=== PATIENT | female | born 1955 | race Caucasian/White ===

== ENCOUNTER 2017-08-22 18:41 | Emergency (ER) | payer MEDICARE ==
[2017-08-22 19:21] VITALS: BP 157/68
[2017-08-22] MEDS ORDERED: Sodium Chloride 0.9% 10 ML Syringe FLUSH PRN (21:07)
[2017-08-22] MEDS: Sodium Chloride 0.9% 1,000 ML IV ONE ×2 (21:26→21:38)
[2017-08-22] MEDS: HYDROmorphone 1 MG/ML Syringe IVPUSH ONE ×2 (21:28→22:57)
[2017-08-22] MEDS ORDERED: Sodium Chloride 0.9% 500 ML IV ONE (21:31)
--- NOTE | 2017-08-22 21:31 | EDM.PDOC ---
ED HPI GENERAL MEDICAL PROBLEM - General Chief Complaint: Back Pain or Injury Stated Complaint: back and left side pain Time Seen by Provider: 08/22/17 20:55 Source of Information: Reports: Patient History Limitations: Reports: No Limitations - History of Present Illness INITIAL COMMENTS - FREE TEXT/NARRATIVE: 62-year-old female presents for evaluation and treatment of left lower back and left flank pain. Patient reports that the pain started suddenly around 1700 or 1730 tonight. Reports at that time she was just sitting watching TV. She states it came on suddenly has been a constant pain. She did feel hot when the pain started. She denies any associated fevers, chills, nausea, vomiting, dysuria, hematuria, lightheadedness, dizziness or syncope. Patient reports that she had a kidney stone several years ago. Patient's past medical history of COPD and is on oxygen at all times. Onset: Today Onset Date: 08/22/17 Location: Reports: Other (left back and flank) Left Lower Back Pain Score (Numeric/FACES): 10 - Related Data Allergies Allergy/AdvReac Type Severity Reaction Status Date / Time levofloxacin [From Levaquin] Allergy Rash Verified 08/08/17 14:46 Home Meds: Home Meds Budesonide/Formoterol [Symbicort 160-4.5 MCG] 2 puff INH BID 04/18/14 [History] Furosemide [Lasix] 40 mg PO BID 04/18/14 [History] Montelukast [Singulair] 10 mg PO BEDTIME 04/18/14 [History] Potassium Chloride [K-Tab ER] 20 meq PO DAILY 04/18/14 [History] Albuterol [Proventil HFA] 2 puff INH Q3H PRN 05/20/15 [History] Albuterol/Ipratropium [DuoNeb 3.0-0.5 MG/3 ML] 3 ml NEB Q4HR 01/13/16 [History] Aclidinium [place] [Tudorza Pressair] 1 puff IH BID 08/08/17 [History] Roflumilast [Daliresp] 500 mcg PO DAILY 08/08/17 [History] Amoxicillin/Potassium Clav [Augmentin 875-125 Tablet] 1 each PO BID #19 tablet 08/22/17 [Rx] Past Medical History Cardiovascular History: Reports: Hypertension Respiratory History: Reports: Asthma, COPD, SOB Other OB/BYN History: Hematologic History: Reports: Other (See Below) Other Hematologic History: Alpha-1 Deficiency - Infectious Disease History Infectious Disease History: Reports: Chicken Pox - Past Surgical History HEENT Surgical History: Reports: Tonsillectomy GI Surgical History: Reports: Cholecystectomy Female Surgical History: Reports: Section Social & Family History - Family History Family Medical History: Noncontributory - Tobacco Use Smoking Status *Q: Former Smoker Years of Tobacco use: 40 Used Tobacco, but Quit: Yes Month Tobacco Last Used: 100 Second Hand Smoke Exposure: No - Caffeine Use Caffeine Use: Reports: Coffee - Alcohol Use Days Per Week of Alcohol Use: 0 Number of Drinks Per Day: 0 Total Drinks Per Week: 0 - Recreational Drug Use Recreational Drug Use: No Drug Use in Last 12 Months: No ED ROS GENERAL - Review of Systems Review Of Systems: See Below Constitutional: Denies: Fever, Chills Cardiovascular: Denies: Lightheadedness, Syncope GI/Abdominal: Denies: Nausea, Vomiting : Reports: Flank Pain (left). Denies: Dysuria Musculoskeletal: Reports: Back Pain (left low to mid back) Neurological: Denies: Syncope ED EXAM,LOWER BACK PAIN/INJURY - Physical Exam Exam: See Below Exam Limited By: No Limitations General Appearance: Alert, WD/WN, No Apparent Distress Ears: Normal External Exam Throat/Mouth: Normal Inspection, Normal Lips, Normal Voice, No Airway Compromise Respiratory/Chest: No Respiratory Distress, Lungs Clear, Normal Breath Sounds Cardiovascular: Normal Peripheral Pulses, Regular Rate, Rhythm, No Murmur GI/Abdominal: No: Distended Back Exam: Normal Inspection, CVA Tenderness (L). No: CVA Tenderness (R) Course - Vital Signs Last Recorded V/S: Last Vital Signs Temp 37.1 C 08/22/17 19:16 Pulse 116 H 08/22/17 19:16 Resp 24 H 08/22/17 19:16 BP 157/68 H 08/22/17 19:16 Pulse Ox 89 L 08/22/17 19:16 - Orders/Labs/Meds Labs: Laboratory Tests 08/22/17 08/22/17 08/22/17 Range/Units 20:00 22:00 22:00 WBC 19.03 H (3.98-10.04) K/mm3 RBC 4.16 (3.98-5.22) M/mm3 Hgb 12.7 (11.2-15.7) gm/L Hct 40.2 (34.1-44.9) % MCV 96.6 H (79.4-94.8) fl MCH 30.5 (25.6-32.2) pg MCHC 31.6 L (32.2-35.5) g/dl RDW Std Deviation 44.9 (36.4-46.3) fL Plt Count 291 (182-369) K/mm3 MPV 9.7 (9.4-12.3) fl Neutrophils % (Manual) 88 H (40-60) % Band Neutrophils % 0 (0-10) % Lymphocytes % (Manual) 9 L (20-40) % Atypical Lymphs % 0 % Monocytes % (Manual) 3 (2-10) % Eosinophils % (Manual) 0 L (0.7-5.8) % Basophils % (Manual) 0 L (0.1-1.2) Platelet Estimate Adequate Plt Morphology Comment Normal RBC Morph Comment Normal Sodium 140 (136-145) mEq/L Potassium 3.9 (3.5-5.1) mEq/L Chloride 102 (98-107) mEq/L Carbon Dioxide 36 H (21-32) mEq/L Anion Gap 5.9 (5-15) BUN 13 (7-18) mg/dL Creatinine 0.7 (0.55-1.02) mg/dL Est Cr Clr Drug Dosing 69.81 mL/min Estimated GFR (MDRD) > 60 (>60) mL/min BUN/Creatinine Ratio 18.6 H (14-18) Glucose 108 (80-115) mg/dL Calcium 9.7 (8.5-10.1) mg/dL Total Bilirubin 0.4 (0.2-1.0) mg/dL AST 20 (15-37) U/L ALT 24 (14-59) U/L Alkaline Phosphatase 112 (46-116) U/L Total Protein 8.2 (6.4-8.2) g/dl Albumin 3.8 (3.4-5.0) g/dl Globulin 4.4 gm/dL Albumin/Globulin Ratio 0.9 L (1-2) Urine Color Light yellow (Yellow) Urine Appearance Clear (Clear) Urine pH 6.5 (5.0-8.0) Ur Specific [place] 1.010 (1.005-1.030) Urine Protein Negative (Negative) Urine Glucose (UA) Negative (Negative) Urine Ketones Negative (Negative) Urine Occult Blood Negative (Negative) Urine Nitrite Negative (Negative) Urine Bilirubin Negative (Negative) Urine Urobilinogen 0.2 (0.2-1.0) Ur Leukocyte Esterase Negative (Negative) Urine RBC 0-5 (0-5) /hpf Urine WBC 0-5 (0-5) /hpf Ur Epithelial Cells 0-5 (0-5) /hpf Urine Bacteria Rare (FEW) /hpf Urine Mucus Not seen (FEW) /hpf Meds: Medications Discontinued Medications Generic Name Dose Route Start Last Admin Trade Name Freq PRN Reason Stop Dose Admin Amoxicillin/Clavulanate Potassium 1 tab 08/22/17 22:53 08/22/17 23:02 Augmentin 875 Mg/125 Mg PO 08/22/17 22:54 1 tab ONETIME ONE Administration Hydromorphone HCl 1 mg 08/22/17 21:07 08/22/17 22:57 Dilaudid IVPUSH 08/22/17 21:08 Not Given ONETIME ONE Sodium Chloride 1,000 mls @ 999 mls/hr 08/22/17 21:09 08/22/17 21:38 Normal Saline IV 08/22/17 22:09 Not Given ONETIME ONE Sodium Chloride 500 mls @ 500 mls/hr 08/22/17 21:31 08/22/17 21:38 Normal Saline IV 08/22/17 22:08 500 mls/hr ONETIME ONE Administration Ketorolac Tromethamine 30 mg 08/22/17 21:32 08/22/17 21:35 Toradol IVPUSH 08/22/17 21:33 30 mg ONETIME ONE Administration Sodium Chloride 10 ml 08/22/17 21:07 08/22/17 21:29 Saline Flush FLUSH 10 ml ASDIRECTED PRN Administration Keep Vein Open - Radiology Interpretation Free Text/Narrative:: CT of the abdomen and pelvis without contrast impression per [facility]: No acute findings. Kidneys and ureters are unremarkable. No obstructing stone. No hydronephrosis. Normal appendix. Pancreas is unremarkable. Vasculature is unremarkable. No abdominal aortic aneurysm. - Re-Assessments/Exams Free Text/Narrative Re-Assessment/Exam: 08/22/17 22:[address] and lab results with the patient. At this point her pain is gone. She declined the Dilaudid earlier and was okay with Toradol. This is now resolved her pain. Plan to discharge her home at this time. Discharge instructions as documented. Departure - Departure Time of Disposition: 22:55 Disposition: Home, Self-Care 01 Condition: Fair Clinical Impression: Sinusitis - Discharge Information Prescriptions: Amoxicillin/Potassium Clav [Augmentin 875-125 Tablet] 1 each PO BID #19 tablet Instructions: Sinusitis, Adult, [id number] Referrals: Harvey Sainz MD [Primary Care Provider] - Forms: ED Department Discharge Additional Instructions: augmentin 1 tab PO bid x 10 days. First dose given in ED start your Rx tomorrow. Take this medication with food. Recommend starting yogurt or a probiotic to help reduce side effects of upset stomach and diarrhea. OTC tylenol or motrin as needed for pain. Recommend using heat to the sore area. Follow- up with PCP this week for a recheck of your symptoms. Please return to the ER should your symptoms change or worsen.
[2017-08-22] MEDS ORDERED: Ketorolac 30 MG/ML SDV IVPUSH ONE (21:32)
[2017-08-22] MEDS ORDERED: Amoxicillin/Clavulanate K 875-125 MG Tab PO ONE (22:53)
--- NOTE | 2017-08-23 10:28 | CT ---
CT abdomen and pelvis Technique: Multiple axial sections were obtained from above the dome of the diaphragm inferiorly through the pubic symphysis. Intravenous and oral contrast was not utilized. Study has been performed as a ureteral stone protocol. Comparison: No prior abdominal or pelvic CT exam, previous abdominal x-ray of 01/01/15. Findings: No abnormal calcifications are seen within the kidneys. Small low density area is noted within the left kidney which is felt compatible with a small cyst measuring 1.4 cm. No hydronephrosis is seen. No ureteral calculi are seen. No bladder calculi are seen. Visualized lung bases show parenchymal density within the left base most likely due to atelectasis or scarring. Noncontrast appearance of the liver and spleen appears within normal limits. Surgical clips are seen from prior cholecystectomy. Pancreas is within normal limits. Adrenal glands show no nodule. Aorta shows minimal aneurysmal dilatation distally of 2.6 cm. Atherosclerotic calcification is noted within the aorta and iliac vessels. No retroperitoneal adenopathy is seen. No mesenteric abnormalities are seen. Appendix is seen which appears normal. No pelvic mass or adenopathy is seen. No free fluid or inflammatory change is identified. Bone window settings were reviewed which show severe disc space narrowing at L5-S1 with vacuum phenomena. Other less prominent degenerative change is seen. Impression: 1. No renal calculi, ureteral dilatation or ureteral stone is seen. 2. Minimal aneurysmal dilatation of the distal aorta 2.6 cm. 3. Other incidental findings as noted above. Diagnostic code #2 I agree with preliminary report issued by [employer] ([facility] report finalized on 08/22/17, 10:59 PM Central Time)
== END 2017-08-22 23:05 | disposition home or self-care (01) ==
LOC: JD.ED 18:41
DX: J32.9 Chronic sinusitis, unspecified (principal); I10 Essential (primary) hypertension; J45.909 Unspecified asthma, uncomplicated; Z88.1 Allergy status to other antibiotic agents
CPT/HCPCS: 36415; 74176; 80053; 81001; 85025; 96361; 96374; 99284; A9270; J1885; J7040; J7050; J1170

== ENCOUNTER 2019-07-14 12:26 | Inpatient (IN) | payer MEDICARE ==
[2019-07-14] MEDS ORDERED: Albuterol/Ipratropium 3.0-0.5 MG/3 ML Neb Soln NEB ONE (13:06)
[2019-07-14] MEDS ORDERED: methylPREDNISolone Sodium Succinate 125 MG/2 ML SDV IVPUSH ONE (13:13)
--- NOTE | 2019-07-14 13:24 | EDM.PDOC ---
ED HPI GENERAL MEDICAL PROBLEM - General Chief Complaint: Respiratory Problem Stated Complaint: SOB Time Seen by Provider: 07/14/19 13:04 Source of Information: Reports: Patient, RN Notes Reviewed History Limitations: Reports: No Limitations - History of Present Illness INITIAL COMMENTS - FREE TEXT/NARRATIVE: Patient is a 64-year-old female presents to the ED for evaluation of shortness of breath or cough. Patient notes that she does have a history of COPD, and is oxygen dependent, she states she uses 4-1/2 L at rest and 5 L with activity and sleep. She states she developed a cough last night, and is now coughing up sticky phlegm is yellow in color. She states she does live with her granddaughter grandchildren, all of which have been ill for the past few weeks. Patient states she just feels as if she cannot catch her breath, and complaints of her chest "burning". 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 She denies any fevers or chills, nausea/vomiting/diarrhea, but states she has increased shortness of breath with the chest burning. - Related Data Allergies Allergy/AdvReac Type Severity Reaction Status Date / Time levofloxacin [From Levaquin] Allergy Rash Verified 07/14/19 12:47 Home Meds: Home Meds Furosemide [Lasix] 40 mg PO BID 04/18/14 [History] Montelukast [Singulair] 10 mg PO BEDTIME 04/18/14 [History] Potassium Chloride [K-Tab ER] 20 meq PO DAILY 04/18/14 [History] Albuterol [Proventil HFA] 2 puff INH Q3H PRN 05/20/15 [History] Albuterol/Ipratropium [DuoNeb 3.0-0.5 MG/3 ML] 3 ml NEB Q4HR 01/13/16 [History] Roflumilast [Daliresp] 500 mcg PO DAILY 08/08/17 [History] Aclidinium [place] [Tudorza Pressair] 1 puff INH BID 07/14/19 [History] Fluticasone/Vilanterol [Breo Ellipta 200-25 MCG Inhalation Kit] 1 puff INH DAILY 07/14/19 [History] Past Medical History HEENT History: Reports: Impaired Vision Other HEENT History: reading eyeglasses. 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 - Infectious Disease History Infectious Disease History: Reports: Chicken Pox - Past Surgical History HEENT Surgical History: Reports: Oral Surgery, Tonsillectomy Other HEENT Surgeries/Procedures: teeth taken out. GI Surgical History: Reports: Cholecystectomy Female Surgical History: Reports: Section Social & Family History - Family History Family Medical History: Noncontributory - Tobacco Use Smoking Status *Q: Former Smoker Years of Tobacco use: 40 Packs/Tins Daily: 1 Used Tobacco, but Quit: Yes Month/Year Tobacco Last Used: Aug 2012 - Caffeine Use Caffeine Use: Reports: Coffee - Recreational Drug Use Recreational Drug Use: No - Living Situation & Occupation Living situation: Reports: , with Family (Daughter, son-in-law, 2 grandchildren) Occupation: Disabled ED ROS GENERAL - Review of Systems Review Of Systems: See Below Constitutional: Denies: Fever, Chills, Malaise HEENT: Reports: No Symptoms Respiratory: Reports: Shortness of Breath, Cough, Sputum. Denies: Wheezing Cardiovascular: Reports: Chest Pain Endocrine: Reports: No Symptoms GI/Abdominal: Denies: Abdominal Pain, Constipation, Diarrhea, Nausea, Vomiting : Reports: No Symptoms Musculoskeletal: Reports: No Symptoms Skin: Reports: No Symptoms Neurological: Reports: No Symptoms Psychiatric: Reports: No Symptoms Hematologic/Lymphatic: Reports: No Symptoms Immunologic: Reports: No Symptoms ED EXAM, GENERAL - Physical Exam Exam: See Below Exam Limited By: No Limitations General Appearance: Alert, WD/WN, No Apparent Distress Eye Exam: Bilateral Eye: Normal Inspection Nose: Normal Inspection, Normal Mucosa, No Blood Throat/Mouth: Normal Inspection, Normal Lips, Normal Teeth, Normal Gums, Normal Oropharynx, Normal Voice, No Airway Compromise Head: Atraumatic, Normocephalic Neck: Normal Inspection Respiratory/Chest: No Respiratory Distress, Lungs Clear, No Accessory Muscle Use , Chest Non-Tender, Decreased Breath Sounds (diffuse bilaterally) Cardiovascular: Normal Peripheral Pulses, Regular Rate, Rhythm, No Edema, No Murmur Peripheral Pulses: 3+: Radial (L), Radial (R) GI/Abdominal: Normal Bowel Sounds, Soft, Non-Tender, No Distention, No Mass Extremities: Normal Inspection, Normal Capillary Refill Neurological: Alert, Oriented, Normal Cognition, No Motor/Sensory Deficits Psychiatric: Normal Affect, Normal Mood Skin Exam: Warm, Dry, Intact, Normal Color, No Rash EKG INTERPRETATION EKG Date: 07/14/19 Time: 13:12 Rhythm: NSR (sinus tach) Rate (Beats/Min): 104 [place]: Normal P-Wave: Present QRS: Normal ST-T: Normal QT: Normal EKG Interpretation Comments: EKG is done, demonstrates sinus tach, but no other acute ischemic changes, she did have multiple PVCs noted. That appeared to be unifocal. This was reviewed by myself and Dr. Eugene. Course - Vital Signs Last Recorded V/S: Last Vital Signs Temp 98.2 F 07/14/19 16:46 Pulse 101 H 07/14/19 16:46 Resp 24 H 07/14/19 16:46 BP 157/55 H 07/14/19 16:46 Pulse Ox 95 07/14/19 16:46 - Orders/Labs/Meds Orders: Active Orders 24 hr Category Date Time Status RT Aerosol Therapy [RC] ASDIRECTED Care 07/14/19 13:06 Active Chest 2V [CR] Stat Exams 07/14/19 13:05 Taken Sodium Chloride 0.9% [Saline Flush] Med 07/14/19 13:13 Active 10 ml FLUSH ASDIRECTED PRN Peripheral IV Insertion Adult [OM.PC] Stat Oth 07/14/19 13:13 Ordered Medication Orders Acetaminophen (Tylenol) 650 mg PO Q4H PRN PRN Reason: Pain (Mild 1-3)/fever Albuterol (Proventil Hfa) 0 gm INH Q2H PRN PRN Reason: Shortness of Breath Albuterol/Ipratropium (Duoneb 3.0-0.5 Mg/3 Ml) 3 ml NEB Q4HR ROD Last Admin: 07/14/19 22:15 Dose: 3 ml Azithromycin (Zithromax) 250 mg PO Q24H ROD Enoxaparin Sodium (Lovenox) 40 mg SUBCUT DAILY [facility] Furosemide (Lasix) 40 mg PO BID [facility] Ceftriaxone Sodium 1 gm/ (Sodium Chloride) 100 mls @ 200 mls/hr IV Q24H [facility] Methylprednisolone Sodium Succinate (Solu-Medrol) 40 mg IVPUSH Q6H ROD Last Admin: 07/14/19 20:15 Dose: 40 mg Montelukast Sodium (Singulair) 10 mg PO BEDTIME ROD Last Admin: 07/14/19 20:15 Dose: 10 mg Ondansetron HCl (Zofran) 4 mg IV Q4H PRN PRN Reason: Nausea/Vomiting Potassium Chloride (Klor-Con M20) 20 meq PO DAILY [facility] Sodium Chloride (Saline Flush) 10 ml FLUSH ASDIRECTED PRN PRN Reason: Keep Vein Open Last Admin: 07/14/19 14:32 Dose: 10 ml Labs: Laboratory Tests 07/14/19 07/14/19 07/14/19 Range/Units 12:45 12:45 12:45 WBC 8.30 (3.98-10.04) K/mm3 RBC 4.12 (3.98-5.22) M/mm3 Hgb 12.2 (11.2-15.7) gm/dl Hct 40.7 (34.1-44.9) % MCV 98.8 H D (79.4-94.8) fl MCH 29.6 (25.6-32.2) pg MCHC 30.0 L (32.2-35.5) g/dl RDW Std Deviation 48.1 H (36.4-46.3) fL Plt Count 293 (182-369) K/mm3 MPV 10.4 (9.4-12.3) fl Neutrophils % (Manual) 71 H (40-60) % Band Neutrophils % 0 (0-10) % Lymphocytes % (Manual) 11 L (20-40) % Atypical Lymphs % 0 % Monocytes % (Manual) 14 H (2-10) % Eosinophils % (Manual) 3 (0.7-5.8) % Basophils % (Manual) 1 (0.1-1.2) Platelet Estimate Adequate Plt Morphology Comment See note Anisocytosis 1+ slight Microcytosis 1+ slight RBC Morph Comment Abnormal PT 10.3 (9.7-12.0) SECONDS INR 0.94 APTT 27 (22-31) SECONDS Puncture Site ABG pH (7.35-7.45) ABG pCO2 (35.0-45.0) mmHg ABG pO2 (80.0-100.0) mmHg ABG HCO3 (22.0-26.0) meq/L ABG O2 Saturation (96.0-97.0) % ABG Base Excess (-2-2.0) Perez Test A-a Gradient mmHg O2 Delivery Device Oxygen Flow Rate FiO2 (21.00-100.00) % Sodium 142 (136-145) mEq/L Potassium 4.3 (3.5-5.1) mEq/L Chloride 101 (98-107) mEq/L Carbon Dioxide 42 H* (21-32) mEq/L Anion Gap 3.3 L (5-15) BUN 17 (7-18) mg/dL Creatinine 0.8 (0.55-1.02) mg/dL Est Cr Clr Drug Dosing 59.54 mL/min Estimated GFR (MDRD) > 60 (>60) mL/min BUN/Creatinine Ratio 21.3 H (14-18) Glucose 115 (80-115) mg/dL Calcium 9.3 (8.5-10.1) mg/dL Total Bilirubin 0.6 (0.2-1.0) mg/dL AST 22 (15-37) U/L ALT 33 (14-59) U/L Alkaline Phosphatase 121 H (46-116) U/L Troponin I < 0.017 (0.00-0.056) ng/mL NT-Pro-B Natriuret Pep (0-125) pg/mL Total Protein 8.0 (6.4-8.2) g/dl Albumin 3.7 (3.4-5.0) g/dl Globulin 4.3 gm/dL Albumin/Globulin Ratio 0.9 L (1-2) Mycoplasma pneumon IgM (NEGATIVE) 07/14/19 07/14/19 07/14/19 Range/Units 12:45 12:45 15:45 WBC (3.98-10.04) K/mm3 RBC (3.98-5.22) M/mm3 Hgb (11.2-15.7) gm/dl Hct (34.1-44.9) % MCV (79.4-94.8) fl MCH (25.6-32.2) pg MCHC (32.2-35.5) g/dl RDW Std Deviation (36.4-46.3) fL Plt Count (182-369) K/mm3 MPV (9.4-12.3) fl Neutrophils % (Manual) (40-60) % Band Neutrophils % (0-10) % Lymphocytes % (Manual) (20-40) % Atypical Lymphs % % Monocytes % (Manual) (2-10) % Eosinophils % (Manual) (0.7-5.8) % Basophils % (Manual) (0.1-1.2) Platelet Estimate Plt Morphology Comment Anisocytosis Microcytosis RBC Morph Comment PT (9.7-12.0) SECONDS INR APTT (22-31) SECONDS Puncture Site Lt radial ABG pH 7.34 L (7.35-7.45) ABG pCO2 80.4 H* (35.0-45.0) mmHg ABG pO2 79.0 L (80.0-100.0) mmHg ABG HCO3 41.7 H (22.0-26.0) meq/L ABG O2 Saturation 94.1 L (96.0-97.0) % ABG Base Excess 13.2 H (-2-2.0) Perez Test Positive A-a Gradient 64 mmHg O2 Delivery Device Nasal cannula Oxygen Flow Rate 4.5 FiO2 34.00 (21.00-100.00) % Sodium (136-145) mEq/L Potassium (3.5-5.1) mEq/L Chloride (98-107) mEq/L Carbon Dioxide (21-32) mEq/L Anion Gap (5-15) BUN (7-18) mg/dL Creatinine (0.55-1.02) mg/dL Est Cr Clr Drug Dosing mL/min Estimated GFR (MDRD) (>60) mL/min BUN/Creatinine Ratio (14-18) Glucose (80-115) mg/dL Calcium (8.5-10.1) mg/dL Total Bilirubin (0.2-1.0) mg/dL AST (15-37) U/L ALT (14-59) U/L Alkaline Phosphatase (46-116) U/L Troponin I (0.00-0.056) ng/mL NT-Pro-B Natriuret Pep 170 H (0-125) pg/mL Total Protein (6.4-8.2) g/dl Albumin (3.4-5.0) g/dl Globulin gm/dL Albumin/Globulin Ratio (1-2) Mycoplasma pneumon IgM Positive H (NEGATIVE) Meds: Medications Generic Name Dose Route Start Last Admin Trade Name Freq PRN Reason Stop Dose Admin Acetaminophen 650 mg 07/14/19 17:17 Tylenol PO Q4H PRN Pain (Mild 1-3)/fever Albuterol 0 gm 07/14/19 17:27 Proventil Hfa INH Q2H PRN Shortness of Breath Albuterol/Ipratropium 3 ml 07/14/19 21:00 07/14/19 22:15 Duoneb 3.0-0.5 Mg/3 Ml NEB 3 ml Q4HR ROD Administration Azithromycin 250 mg 07/15/19 16:00 Zithromax PO Q24H ROD Enoxaparin Sodium 40 mg 07/15/19 09:00 Lovenox SUBCUT DAILY ROD Furosemide 40 mg 07/15/19 09:00 Lasix PO BID ROD Ceftriaxone Sodium 1 gm/ 100 mls @ 200 mls/hr 07/15/19 15:00 Sodium Chloride IV Q24H ROD Methylprednisolone Sodium Succinate 40 mg 07/14/19 20:00 07/14/19 20:15 Solu-Medrol IVPUSH 40 mg Q6H ROD Administration Montelukast Sodium 10 mg 07/14/19 21:00 07/14/19 20:15 Singulair PO 10 mg BEDTIME ROD Administration Ondansetron HCl 4 mg 07/14/19 17:17 Zofran IV Q4H PRN Nausea/Vomiting Potassium Chloride 20 meq 07/15/19 09:00 Klor-Con M20 PO DAILY ROD Sodium Chloride 10 ml 07/14/19 13:13 07/14/19 14:32 Saline Flush FLUSH 10 ml ASDIRECTED PRN Administration Keep Vein Open Discontinued Medications Generic Name Dose Route Start Last Admin Trade Name Sarkisq PRN Reason Stop Dose Admin Albuterol/Ipratropium 3 ml 07/14/19 13:06 07/14/19 13:21 Duoneb 3.0-0.5 Mg/3 Ml NEB 07/14/19 13:07 3 ml ONETIME ONE Administration Azithromycin 500 mg/ Sodium 250 mls @ 250 mls/hr 07/14/19 15:14 07/14/19 17: 41 Chloride IV 07/14/19 16:13 250 mls/hr ONETIME ONE Administration Ceftriaxone Sodium 1 gm/ 100 mls @ 200 mls/hr 07/14/19 15:13 07/14/19 16:02 Sodium Chloride IV 07/14/19 15:42 200 mls/hr ONETIME ONE Administration Lorazepam 0.5 mg 07/14/19 18:48 07/14/19 19:08 Ativan IVPUSH 07/14/19 18:49 0.5 mg ONETIME ONE Administration Methylprednisolone Sodium Succinate 125 mg 07/14/19 13:13 07/14/19 14:30 Solu-Medrol IVPUSH 07/14/19 13:14 125 mg ONETIME ONE Administration - Re-Assessments/Exams Free Text/Narrative Re-Assessment/Exam: 07/14/19 13:25 Patient presents to the ED for evaluation of increasing shortness of breath or cough. Lung sounds are decreased bilaterally, which is suggestive of some exacerbation of her COPD. Did order a DuoNeb, EKG, chest x-ray, 125 mg of Solu- Medrol IV, with CBC, CMP, troponin, PT/INR, PTT, mycoplasma, and BNP for initial evaluation. 07/14/19 13:55 CBC and CMP are back, white blood cell count is within normal limits, neutrophil percentage is 71% with no bands, metabolic panel is essentially normal except for an elevated CO2 level, but she is a CO2 retainer, so this is not worrisome at this time. Trop is negative, and BNP is only mildly elevated at 170. 07/14/19 14:58 Chest x-ray demonstrates possible vascular congestion vs. early pneumonia on the R lung. Mycoplasma is still pending at this time. I do believe the patient would benefit from hospital admission for COPD exacerbation at this time. I will try to call Dr. Lara for possible admission at this time. 07/14/19 15:10 Dr. Lara was consulted on the patient, and he accepts patient for admission however does want ABG to be drawn to check ventilatory status, guarding possible BiPAP use. He recommended start of 1 g Rocephin and 500 mg azithromycin for antibiotic regimen. Mycoplasma was positive. Departure - Departure Time of Disposition: 15:15 Disposition: Admitted As Inpatient 67 Condition: Fair Clinical Impression: COPD exacerbation Community acquired pneumonia Qualifiers: Laterality: right Lung location: unspecified part of lung Qualified Code(s): J18.9 - Pneumonia, unspecified organism - Discharge Information *PRESCRIPTION DRUG MONITORING PROGRAM REVIEWED*: No *COPY OF PRESCRIPTION DRUG MONITORING REPORT IN PATIENT LANI: No - My Orders Last 24 Hours: My Active Orders 07/14/19 13:05 Chest 2V [CR] Stat 07/14/19 13:06 RT Aerosol Therapy [RC] ASDIRECTED 07/14/19 13:13 Sodium Chloride 0.9% [Saline Flush] 10 ml FLUSH ASDIRECTED PRN Peripheral IV Insertion Adult [OM.PC] Stat - Assessment/Plan Last 24 Hours: My Active Orders 07/14/19 13:05 Chest 2V [CR] Stat 07/14/19 13:06 RT Aerosol Therapy [RC] ASDIRECTED 07/14/19 13:13 Sodium Chloride 0.9% [Saline Flush] 10 ml FLUSH ASDIRECTED PRN Peripheral IV Insertion Adult [OM.PC] Stat
[2019-07-14] MEDS: Sodium Chloride 0.9% 10 ML Syringe FLUSH PRN (14:32)
[2019-07-14] MEDS ORDERED: cefTRIAXone 1 GM in Sodium Chloride 0.9% 100 ML IV ONE (15:13)
[2019-07-14] MEDS ORDERED: Azithromycin 500 MG in Sodium Chloride 0.9% 250 ML IV ONE (15:14)
[2019-07-14] MEDS ORDERED: Acetaminophen 325 MG Tab PO PRN (17:17)
[2019-07-14] MEDS ORDERED: Ondansetron 4 MG/2 ML SDV IV PRN (17:17)
[2019-07-14] MEDS ORDERED: Albuterol 6.7 GM Inhaler INH PRN (17:27)
--- NOTE | 2019-07-14 17:34 | PCM.HP.2 ---
H&P History of Present Illness - General Date of Service: 07/14/19 Admit Problem/Dx: Admission Diagnosis/Problem Admission Diagnosis/Problem COPD not affecting current episode of care - History of Present Illness Initial Comments - Free Text/Narative: 64-year-old female with severe COPD presented to the emergency room with shortness of breath that started this morning. Patient states that she has been on oxygen since 2012, the same time she stops smoking, and is now on 4.5 L daily and 5.0 L with activity. She states that she has been prescribed 5.0 L with sleep but does not use it because it's too much. She does use a 4.5 L at sleep though. Patient states that she today she had some worsening shortness of breath with dyspnea on exertion from her bed to her bathroom. She states that everyone in her house has been sick. She did cough yellowish sputum up-to-date. She denies any fever or chills. She has a history of hypertension but no history of heart disease although she is on Lasix twice a day. In the emergency room patient was given DuoNeb, EKG, chest x-ray, Solu-Medrol 125 mg IV, and lab work. Laboratory pertinent positives: Bicarbonate 42, proBNP 170, mycoplasma pneumonia IgM positive. Pertinent negatives: CBC 8.3, 71% neutrophils with 0% bands, normal electrolytes, BUN 17, creatinine 0.8 with an estimated GFR greater than 60, troponin I less than 0.017. Chest x-ray shows some increased basilar congestion but otherwise negative. ABG was performed: PH 7.34, PCO2 of 80.4, PO2 of 79, HCO3 41.7. Acute on chronic history acidosis with metabolic alkalosis - Related Data Allergies/Adverse Reactions: Allergies Allergy/AdvReac Type Severity Reaction Status Date / Time levofloxacin [From Levaquin] Allergy Rash Verified 07/14/19 12:47 Home Medications: Home Meds Furosemide [Lasix] 40 mg PO BID 04/18/14 [History] Montelukast [Singulair] 10 mg PO BEDTIME 04/18/14 [History] Potassium Chloride [K-Tab ER] 20 meq PO DAILY 04/18/14 [History] Albuterol [Proventil HFA] 2 puff INH Q3H PRN 05/20/15 [History] Albuterol/Ipratropium [DuoNeb 3.0-0.5 MG/3 ML] 3 ml NEB Q4HR 01/13/16 [History] Roflumilast [Daliresp] 500 mcg PO DAILY 08/08/17 [History] Aclidinium [address] [Tudorza Pressair] 1 puff INH BID 07/14/19 [History] Fluticasone/Vilanterol [Breo Ellipta 200-25 MCG Inhalation Kit] 1 puff INH DAILY 07/14/19 [History] Past Medical History HEENT History: Reports: Impaired Vision Other HEENT History: reading eyeglasses. 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 - Infectious Disease History Infectious Disease History: Reports: Chicken Pox - Past Surgical History HEENT Surgical History: Reports: Oral Surgery, Tonsillectomy Other HEENT Surgeries/Procedures: teeth taken out. GI Surgical History: Reports: Cholecystectomy Female Surgical History: Reports: Section Social & Family History - Family History Family Medical History: Noncontributory - Tobacco Use Smoking Status *Q: Former Smoker Years of Tobacco use: 40 Packs/Tins Daily: 1 Used Tobacco, but Quit: Yes Month/Year Tobacco Last Used: Aug 2012 - Caffeine Use Caffeine Use: Reports: Coffee - Recreational Drug Use Recreational Drug Use: No - Living Situation & Occupation Living situation: Reports: , with Family (Daughter, son-in-law, 2 grandchildren) Occupation: Disabled H&P Review of Systems - Review of Systems: Review Of Systems: Comprehensive ROS is negative, except as noted in HPI. Exam - Exam Exam: See Below - Vital Signs Vital Signs: Last Vital Signs Temp 98.3 F 07/14/19 16:25 Pulse 96 07/14/19 16:25 Resp 22 H 07/14/19 16:25 BP 127/106 H 07/14/19 16:25 Pulse Ox 94 L 07/14/19 16:25 Weight: 202 lb 14.4 oz - Exam Quality Assessment: Supplemental Oxygen General: Alert, Oriented, 4 HEENT: Conjunctiva Clear, EACs Clear, Mucosa Moist & [place] Neck: Supple, Trachea Midline, 2 Lungs: Decreased Breath Sounds. No: Normal Respiratory Effort (increased respiratory rate with increasedaccessory muscles and work of breathing) Cardiovascular: Regular Rate, Regular Rhythm GI/Abdominal Exam: Normal Bowel Sounds, Soft, Non-Tender, No Distention Extremities: Normal Inspection, No Pedal Edema Skin: Warm, Dry, Intact Neuro Extensive - Mental Status: Alert, Oriented x3 Neuro Extensive - Motor, Sensory, Reflexes: CN II-XII Intact Psychiatric: Alert, Normal Affect, Normal Mood - Patient Data Lab Results Last 24 hrs: Laboratory Results - last 24 hr 07/14/19 07/14/19 07/14/19 Range/Units 12:45 12:45 12:45 WBC 8.30 (3.98-10.04) K/mm3 RBC 4.12 (3.98-5.22) M/mm3 Hgb 12.2 (11.2-15.7) gm/dl Hct 40.7 (34.1-44.9) % MCV 98.8 H D (79.4-94.8) fl MCH 29.6 (25.6-32.2) pg MCHC 30.0 L (32.2-35.5) g/dl RDW Std Deviation 48.1 H (36.4-46.3) fL Plt Count 293 (182-369) K/mm3 MPV 10.4 (9.4-12.3) fl Neutrophils % (Manual) 71 H (40-60) % Band Neutrophils % 0 (0-10) % Lymphocytes % (Manual) 11 L (20-40) % Atypical Lymphs % 0 % Monocytes % (Manual) 14 H (2-10) % Eosinophils % (Manual) 3 (0.7-5.8) % Basophils % (Manual) 1 (0.1-1.2) Platelet Estimate Adequate Plt Morphology Comment See note Anisocytosis 1+ slight Microcytosis 1+ slight RBC Morph Comment Abnormal PT 10.3 (9.7-12.0) SECONDS INR 0.94 APTT 27 (22-31) SECONDS Puncture Site ABG pH (7.35-7.45) ABG pCO2 (35.0-45.0) mmHg ABG pO2 (80.0-100.0) mmHg ABG HCO3 (22.0-26.0) meq/L ABG O2 Saturation (96.0-97.0) % ABG Base Excess (-2-2.0) Perez Test A-a Gradient mmHg O2 Delivery Device Oxygen Flow Rate FiO2 (21.00-100.00) % Sodium 142 (136-145) mEq/L Potassium 4.3 (3.5-5.1) mEq/L Chloride 101 (98-107) mEq/L Carbon Dioxide 42 H* (21-32) mEq/L Anion Gap 3.3 L (5-15) BUN 17 (7-18) mg/dL Creatinine 0.8 (0.55-1.02) mg/dL Est Cr Clr Drug Dosing 59.54 mL/min Estimated GFR (MDRD) > 60 (>60) mL/min BUN/Creatinine Ratio 21.3 H (14-18) Glucose 115 (80-115) mg/dL Calcium 9.3 (8.5-10.1) mg/dL Total Bilirubin 0.6 (0.2-1.0) mg/dL AST 22 (15-37) U/L ALT 33 (14-59) U/L Alkaline Phosphatase 121 H (46-116) U/L Troponin I < 0.017 (0.00-0.056) ng/mL NT-Pro-B Natriuret Pep (0-125) pg/mL Total Protein 8.0 (6.4-8.2) g/dl Albumin 3.7 (3.4-5.0) g/dl Globulin 4.3 gm/dL Albumin/Globulin Ratio 0.9 L (1-2) Mycoplasma pneumon IgM (NEGATIVE) 07/14/19 07/14/19 07/14/19 Range/Units 12:45 12:45 15:45 WBC (3.98-10.04) K/mm3 RBC (3.98-5.22) M/mm3 Hgb (11.2-15.7) gm/dl Hct (34.1-44.9) % MCV (79.4-94.8) fl MCH (25.6-32.2) pg MCHC (32.2-35.5) g/dl RDW Std Deviation (36.4-46.3) fL Plt Count (182-369) K/mm3 MPV (9.4-12.3) fl Neutrophils % (Manual) (40-60) % Band Neutrophils % (0-10) % Lymphocytes % (Manual) (20-40) % Atypical Lymphs % % Monocytes % (Manual) (2-10) % Eosinophils % (Manual) (0.7-5.8) % Basophils % (Manual) (0.1-1.2) Platelet Estimate Plt Morphology Comment Anisocytosis Microcytosis RBC Morph Comment PT (9.7-12.0) SECONDS INR APTT (22-31) SECONDS Puncture Site Lt radial ABG pH 7.34 L (7.35-7.45) ABG pCO2 80.4 H* (35.0-45.0) mmHg ABG pO2 79.0 L (80.0-100.0) mmHg ABG HCO3 41.7 H (22.0-26.0) meq/L ABG O2 Saturation 94.1 L (96.0-97.0) % ABG Base Excess 13.2 H (-2-2.0) Perez Test Positive A-a Gradient 64 mmHg O2 Delivery Device Nasal cannula Oxygen Flow Rate 4.5 FiO2 34.00 (21.00-100.00) % Sodium (136-145) mEq/L Potassium (3.5-5.1) mEq/L Chloride (98-107) mEq/L Carbon Dioxide (21-32) mEq/L Anion Gap (5-15) BUN (7-18) mg/dL Creatinine (0.55-1.02) mg/dL Est Cr Clr Drug Dosing mL/min Estimated GFR (MDRD) (>60) mL/min BUN/Creatinine Ratio (14-18) Glucose (80-115) mg/dL Calcium (8.5-10.1) mg/dL Total Bilirubin (0.2-1.0) mg/dL AST (15-37) U/L ALT (14-59) U/L Alkaline Phosphatase (46-116) U/L Troponin I (0.00-0.056) ng/mL NT-Pro-B Natriuret Pep 170 H (0-125) pg/mL Total Protein (6.4-8.2) g/dl Albumin (3.4-5.0) g/dl Globulin gm/dL Albumin/Globulin Ratio (1-2) Mycoplasma pneumon IgM Positive H (NEGATIVE) Result Diagrams: 07/14/19 12:45 07/14/19 12:45 Problem List Initiated/Reviewed/Updated: Yes Orders Last 24hrs: Active Orders 24 hr Category Date Time Status Admission Status [Patient Status] [ADT] Routine ADT 07/14/19 16:01 Active BIPAP [RT BiPAP/CPAP] [RC] ASDIRECTED Care 07/14/19 16:05 Active EKG Documentation Completion [RC] STAT Care 07/14/19 13:05 Active Oxygen Therapy [RC] PRN Care 07/14/19 17:17 Active Oxygen Therapy, ED [RC] ASDIRECTED Care 07/14/19 16:39 Active Peripheral IV Care [RC] . DIRECTED Care 07/14/19 13:13 Active RT Aerosol Therapy [RC] ASDIRECTED Care 07/14/19 13:06 Active RT Post Treatment Assessment [RC] Click to Edit Care 07/14/19 17:28 Active RT Pre-Treatment Assessment [RC] Click to Edit Care 07/14/19 17:28 Active Up With Assistance [RC] ASDIRECTED Care 07/14/19 17:17 Active VTE/DVT Education [RC] PER UNIT ROUTINE Care 07/14/19 17:17 Active Vital Signs [RC] Q4H Care 07/14/19 17:17 Active Respiratory Care Assess and Treatment [CONS] Routine Cons 07/14/19 17:21 Active Regular Diet [DIET] Diet 07/14/19 Dinner Active Chest 2V [CR] Stat Exams 07/14/19 13:05 Taken BLOOD GAS ARTERIAL [BG] Timed Lab 07/14/19 18:30 Ordered C-REACTIVE PROTEIN [CHEM] AM Lab 07/15/19 05:11 Ordered C-REACTIVE PROTEIN [CHEM] AM Lab 07/16/19 05:11 Ordered C-REACTIVE PROTEIN [CHEM] AM Lab 07/17/19 05:11 Ordered CBC WITH AUTO DIFF [HEME] AM Lab 07/15/19 05:11 Ordered CBC WITH AUTO DIFF [HEME] AM Lab 07/16/19 05:11 Ordered CBC WITH AUTO DIFF [HEME] AM Lab 07/17/19 05:11 Ordered COMPREHENSIVE METABOLIC PN,CMP [CHEM] AM Lab 07/15/19 05:11 Ordered COMPREHENSIVE METABOLIC PN,CMP [CHEM] AM Lab 07/16/19 05:11 Ordered COMPREHENSIVE METABOLIC PN,CMP [CHEM] AM Lab 07/17/19 05:11 Ordered MAGNESIUM [CHEM] AM Lab 07/15/19 05:11 Ordered MAGNESIUM [CHEM] AM Lab 07/16/19 05:11 Ordered MAGNESIUM [CHEM] AM Lab 07/17/19 05:11 Ordered Acetaminophen [Tylenol] Med 07/14/19 17:17 Active 650 mg PO Q4H PRN Albuterol [Proventil HFA] Med 07/14/19 17:27 Ordered See Dose Instructions INH Q2H PRN Albuterol/Ipratropium [DuoNeb 3.0-0.5 MG/3 ML] Med 07/14/19 21:00 Active 3 ml NEB Q4HR Azithromycin [Zithromax] Med 07/15/19 16:00 Active 250 mg PO Q24H Enoxaparin [Lovenox] Med 07/15/19 09:00 Ordered 40 mg SUBCUT DAILY Furosemide [Lasix] Med 07/15/19 09:00 Ordered 40 mg PO BID Montelukast [Singulair] Med 07/14/19 21:00 Ordered 10 mg PO BEDTIME Ondansetron [Zofran] Med 07/14/19 17:17 Ordered 4 mg IV Q4H PRN Potassium Chloride [K-Tab ER] Med 07/15/19 09:00 Ordered 20 meq PO DAILY Sodium Chloride 0.9% [Saline Flush] Med 07/14/19 13:13 Active 10 ml FLUSH ASDIRECTED PRN cefTRIAXone [Rocephin] 1 gm Med 07/15/19 15:00 Active Sodium Chloride 0.9% [Normal Saline] 100 ml IV Q24H methylPREDNISolone Sod Succ [Solu-MEDROL] Med 07/14/19 20:00 Ordered 40 mg IVPUSH Q6H Peripheral IV Insertion Adult [OM.PC] Stat Oth 07/14/19 13:13 Ordered Resuscitation Status Routine Resus Stat 07/14/19 17:17 Ordered Medication Orders Acetaminophen (Tylenol) 650 mg PO Q4H PRN PRN Reason: Pain (Mild 1-3)/fever Albuterol (Proventil Hfa) 0 gm INH Q2H PRN PRN Reason: Shortness of Breath Albuterol/Ipratropium (Duoneb 3.0-0.5 Mg/3 Ml) 3 ml NEB Q4HR ROD Azithromycin (Zithromax) 250 mg PO Q24H ROD Enoxaparin Sodium (Lovenox) 40 mg SUBCUT DAILY ROD Furosemide (Lasix) 40 mg PO BID ROD Ceftriaxone Sodium 1 gm/ (Sodium Chloride) 100 mls @ 200 mls/hr IV Q24H ROD Methylprednisolone Sodium Succinate (Solu-Medrol) 40 mg IVPUSH Q6H ROD Montelukast Sodium (Singulair) 10 mg PO BEDTIME ROD Non-Formulary Medication (Potassium Chloride [K-Tab Er]) 20 meq PO DAILY ROD Ondansetron HCl (Zofran) 4 mg IV Q4H PRN PRN Reason: Nausea/Vomiting Sodium Chloride (Saline Flush) 10 ml FLUSH ASDIRECTED PRN PRN Reason: Keep Vein Open Last Admin: 07/14/19 14:32 Dose: 10 ml Assessment/Plan Comment:: Assessment * Acute exacerbation of COPD likely secondary to mycoplasma * Patient is on home oxygen of 4.5 L to 5 L * Mycoplasma antibody IgM positive * Increased respiratory rate with increased work of breathing * Hypercapnia * Acute respiratory failure * PCO2 of 80 * Hypoxemia * Increased respiratory rate with increased respiratory effort * Sepsis risk * Hypertension with likely some underlying diastolic heart failure * On furosemide 40 mg twice a day At home Plan * Admit to medical floor on telemetry * BiPAP * Recheck ABG on BiPAP. * Rocephin 1 g every 24 hours * Azithromycin 500 mg IV 1 then 250 mg 4 days * Hold tonight's dose of furosemide * Solu-Medrol 125 mg IV given in ER * Solu-Medrol 40 mg every 6 hours then taper over 5 days * Blood cultures * lactic acid with reflex * VTE prophylaxis with Lovenox * CODE STATUS: Full code * Length of stay anticipated 3-4 days - Mortality Measure Prognosis:: Poor
[2019-07-14] MEDS ORDERED: LORazepam 2 MG/ML SDV IVPUSH ONE (18:48)
[2019-07-14] MEDS: methylPREDNISolone Sodium Succinate 40 MG/1 ML SDV IVPUSH SCH (20:15)
[2019-07-14] MEDS: Montelukast 10 MG Tab PO SCH (20:15)
[2019-07-14] MEDS: Albuterol/Ipratropium 3.0-0.5 MG/3 ML Neb Soln NEB SCH (22:15)
--- NOTE | 2019-07-15 00:16 | PCM.SN ---
- Free Text/Narrative Note: Patient had a repeat blood gas on BiPAP settings of 14/8 with 38% FiO2. Patient' s pH was 7.31, PCO2 of 81.1, PO2 of 69, HCO3 of 39.4. Patient was resting comfortably and we removed BiPAP to transfer her to the unit. She was minimally short of breath, able to talk in full sentences, and generally appeared improved. Unfortunately, repeat blood gas off of BiPAP was even worse with a pH of 7.29, PCO2 of 88.6, PO2 of 79.0, HCO3 of 41.1, on only 3-1/2 L nasal cannula. Patient was transferred to the unit and placed on BiPAP with IPAP of 16. If patient develops anxiety we will use Ativan 0.5 mg for anxiety. I discussed that the next step in treatment if she continues to become worsening acidotic and PCO2 continues to climb or not improve that intubation will be the next step in treatment. Patient voices understanding.
[2019-07-15] MEDS: Albuterol/Ipratropium 3.0-0.5 MG/3 ML Neb Soln NEB SCH ×6 (01:20→20:38)
[2019-07-15] MEDS: Sodium Chloride 0.9% 10 ML Syringe FLUSH PRN (02:03)
[2019-07-15] MEDS: methylPREDNISolone Sodium Succinate 40 MG/1 ML SDV IVPUSH SCH ×4 (02:04→20:38)
[2019-07-15] MEDS: Potassium Chloride 20 MEQ Tab.ER PO SCH (08:06)
[2019-07-15] MEDS: Furosemide 40 MG Tab PO SCH ×3 (08:06→20:38)
--- NOTE | 2019-07-15 09:07 | PCM.PN ---
- General Info Date of Service: 07/15/19 Admission Dx/Problem (Free Text): Admission Diagnosis/Problem Admission Diagnosis/Problem COPD not affecting current episode of care Subjective Update: Olga was transferred to the ICU 09/23 to respiratory failure. She tolerated the BiPAP all night and rested comfortably. Appetite is good and she overall is feeling much better. Functional Status: Reports: Pain Controlled - Review of Systems General: Reports: No Symptoms HEENT: Reports: No Symptoms Pulmonary: Reports: Shortness of Breath. Denies: Sputum Cardiovascular: Reports: No Symptoms Gastrointestinal: Reports: No Symptoms - Patient Data Vitals - Most Recent: Last Vital Signs Temp 98.3 F 07/15/19 08:00 Pulse 72 07/15/19 05:00 Resp 18 07/15/19 08:00 BP 152/76 H 07/15/19 08:00 Pulse Ox 94 L 07/15/19 08:46 Weight - Most Recent: 201 lb 11.2 oz I&O - Last 24 Hours: Intake & Output 07/14/19 07/15/19 07/15/19 22:59 06:59 14:59 Intake Total 510 Output Total 380 100 Balance -380 410 Lab Results Last 24 Hours: Laboratory Results - last 24 hr 07/14/19 07/14/19 07/14/19 Range/Units 12:45 12:45 12:45 WBC 8.30 (3.98-10.04) K/mm3 RBC 4.12 (3.98-5.22) M/mm3 Hgb 12.2 (11.2-15.7) gm/dl Hct 40.7 (34.1-44.9) % MCV 98.8 H D (79.4-94.8) fl MCH 29.6 (25.6-32.2) pg MCHC 30.0 L (32.2-35.5) g/dl RDW Std Deviation 48.1 H (36.4-46.3) fL Plt Count 293 (182-369) K/mm3 MPV 10.4 (9.4-12.3) fl Neut % (Auto) (34.0-71.1) % Lymph % (Auto) (19.3-51.7) % Woodward % (Auto) (4.7-12.5) % Eos % (Auto) (0.7-5.8) Baso % (Auto) (0.1-1.2) % Neut # (Auto) (1.56-6.13) K/mm3 Lymph # (Auto) (1.18-3.74) K/mm3 Woodward # (Auto) (0.24-0.36) K/mm3 Eos # (Auto) (0.04-0.36) K/mm3 Baso # (Auto) (0.01-0.08) K/mm3 Neutrophils % (Manual) 71 H (40-60) % Band Neutrophils % 0 (0-10) % Lymphocytes % (Manual) 11 L (20-40) % Atypical Lymphs % 0 % Monocytes % (Manual) 14 H (2-10) % Eosinophils % (Manual) 3 (0.7-5.8) % Basophils % (Manual) 1 (0.1-1.2) Manual Slide Review Platelet Estimate Adequate Plt Morphology Comment See note Anisocytosis 1+ slight Microcytosis 1+ slight RBC Morph Comment Abnormal PT 10.3 (9.7-12.0) SECONDS INR 0.94 APTT 27 (22-31) SECONDS Puncture Site ABG pH (7.35-7.45) ABG pCO2 (35.0-45.0) mmHg ABG pO2 (80.0-100.0) mmHg ABG HCO3 (22.0-26.0) meq/L ABG O2 Saturation (96.0-97.0) % ABG Base Excess (-2-2.0) Perez Test A-a Gradient mmHg O2 Delivery Device Oxygen Flow Rate FiO2 (21.00-100.00) % Blood Gas Comments Sodium 142 (136-145) mEq/L Potassium 4.3 (3.5-5.1) mEq/L Chloride 101 (98-107) mEq/L Carbon Dioxide 42 H* (21-32) mEq/L Anion Gap 3.3 L (5-15) BUN 17 (7-18) mg/dL Creatinine 0.8 (0.55-1.02) mg/dL Est Cr Clr Drug Dosing 59.54 mL/min Estimated GFR (MDRD) > 60 (>60) mL/min BUN/Creatinine Ratio 21.3 H (14-18) Glucose 115 (80-115) mg/dL Lactic Acid (0.4-2.0) mmol/L Calcium 9.3 (8.5-10.1) mg/dL Magnesium (1.8-2.4) mg/dl Total Bilirubin 0.6 (0.2-1.0) mg/dL AST 22 (15-37) U/L ALT 33 (14-59) U/L Alkaline Phosphatase 121 H (46-116) U/L Troponin I < 0.017 (0.00-0.056) ng/mL C-Reactive Protein (<1.0) mg/dL NT-Pro-B Natriuret Pep (0-125) pg/mL Total Protein 8.0 (6.4-8.2) g/dl Albumin 3.7 (3.4-5.0) g/dl Globulin 4.3 gm/dL Albumin/Globulin Ratio 0.9 L (1-2) Mycoplasma pneumon IgM (NEGATIVE) 07/14/19 07/14/19 07/14/19 Range/Units 12:45 12:45 15:45 WBC (3.98-10.04) K/mm3 RBC (3.98-5.22) M/mm3 Hgb (11.2-15.7) gm/dl Hct (34.1-44.9) % MCV (79.4-94.8) fl MCH (25.6-32.2) pg MCHC (32.2-35.5) g/dl RDW Std Deviation (36.4-46.3) fL Plt Count (182-369) K/mm3 MPV (9.4-12.3) fl Neut % (Auto) (34.0-71.1) % Lymph % (Auto) (19.3-51.7) % Woodward % (Auto) (4.7-12.5) % Eos % (Auto) (0.7-5.8) Baso % (Auto) (0.1-1.2) % Neut # (Auto) (1.56-6.13) K/mm3 Lymph # (Auto) (1.18-3.74) K/mm3 Woodward # (Auto) (0.24-0.36) K/mm3 Eos # (Auto) (0.04-0.36) K/mm3 Baso # (Auto) (0.01-0.08) K/mm3 Neutrophils % (Manual) (40-60) % Band Neutrophils % (0-10) % Lymphocytes % (Manual) (20-40) % Atypical Lymphs % % Monocytes % (Manual) (2-10) % Eosinophils % (Manual) (0.7-5.8) % Basophils % (Manual) (0.1-1.2) Manual Slide Review Platelet Estimate Plt Morphology Comment Anisocytosis Microcytosis RBC Morph Comment PT (9.7-12.0) SECONDS INR APTT (22-31) SECONDS Puncture Site Lt radial ABG pH 7.34 L (7.35-7.45) ABG pCO2 80.4 H* (35.0-45.0) mmHg ABG pO2 79.0 L (80.0-100.0) mmHg ABG HCO3 41.7 H (22.0-26.0) meq/L ABG O2 Saturation 94.1 L (96.0-97.0) % ABG Base Excess 13.2 H (-2-2.0) Perez Test Positive A-a Gradient 64 mmHg O2 Delivery Device Nasal cannula Oxygen Flow Rate 4.5 FiO2 34.00 (21.00-100.00) % Blood Gas Comments Sodium (136-145) mEq/L Potassium (3.5-5.1) mEq/L Chloride (98-107) mEq/L Carbon Dioxide (21-32) mEq/L Anion Gap (5-15) BUN (7-18) mg/dL Creatinine (0.55-1.02) mg/dL Est Cr Clr Drug Dosing mL/min Estimated GFR (MDRD) (>60) mL/min BUN/Creatinine Ratio (14-18) Glucose (80-115) mg/dL Lactic Acid (0.4-2.0) mmol/L Calcium (8.5-10.1) mg/dL Magnesium (1.8-2.4) mg/dl Total Bilirubin (0.2-1.0) mg/dL AST (15-37) U/L ALT (14-59) U/L Alkaline Phosphatase (46-116) U/L Troponin I (0.00-0.056) ng/mL C-Reactive Protein (<1.0) mg/dL NT-Pro-B Natriuret Pep 170 H (0-125) pg/mL Total Protein (6.4-8.2) g/dl Albumin (3.4-5.0) g/dl Globulin gm/dL Albumin/Globulin Ratio (1-2) Mycoplasma pneumon IgM Positive H (NEGATIVE) 07/14/19 07/14/19 07/14/19 Range/Units 20:55 21:35 23:48 WBC (3.98-10.04) K/mm3 RBC (3.98-5.22) M/mm3 Hgb (11.2-15.7) gm/dl Hct (34.1-44.9) % MCV (79.4-94.8) fl MCH (25.6-32.2) pg MCHC (32.2-35.5) g/dl RDW Std Deviation (36.4-46.3) fL Plt Count (182-369) K/mm3 MPV (9.4-12.3) fl Neut % (Auto) (34.0-71.1) % Lymph % (Auto) (19.3-51.7) % Woodward % (Auto) (4.7-12.5) % Eos % (Auto) (0.7-5.8) Baso % (Auto) (0.1-1.2) % Neut # (Auto) (1.56-6.13) K/mm3 Lymph # (Auto) (1.18-3.74) K/mm3 Woodward # (Auto) (0.24-0.36) K/mm3 Eos # (Auto) (0.04-0.36) K/mm3 Baso # (Auto) (0.01-0.08) K/mm3 Neutrophils % (Manual) (40-60) % Band Neutrophils % (0-10) % Lymphocytes % (Manual) (20-40) % Atypical Lymphs % % Monocytes % (Manual) (2-10) % Eosinophils % (Manual) (0.7-5.8) % Basophils % (Manual) (0.1-1.2) Manual Slide Review Platelet Estimate Plt Morphology Comment Anisocytosis Microcytosis RBC Morph Comment PT (9.7-12.0) SECONDS INR APTT (22-31) SECONDS Puncture Site Rt radial Lt brachial ABG pH 7.31 L 7.29 L (7.35-7.45) ABG pCO2 81.1 H* 88.6 H* (35.0-45.0) mmHg ABG pO2 69.0 L 79.0 L (80.0-100.0) mmHg ABG HCO3 39.4 H 41.1 H (22.0-26.0) meq/L ABG O2 Saturation 91.6 L 94.4 L (96.0-97.0) % ABG Base Excess 10.2 H 11.7 H (-2-2.0) Perez Test Positive A-a Gradient 101 54 mmHg O2 Delivery Device Bipap Cannula Oxygen Flow Rate 4.5 3.5 FiO2 38.00 34.00 (21.00-100.00) % Blood Gas Comments Bipap 14/8 Sodium (136-145) mEq/L Potassium (3.5-5.1) mEq/L Chloride (98-107) mEq/L Carbon Dioxide (21-32) mEq/L Anion Gap (5-15) BUN (7-18) mg/dL Creatinine (0.55-1.02) mg/dL Est Cr Clr Drug Dosing mL/min Estimated GFR (MDRD) (>60) mL/min BUN/Creatinine Ratio (14-18) Glucose (80-115) mg/dL Lactic Acid 1.1 (0.4-2.0) mmol/L Calcium (8.5-10.1) mg/dL Magnesium (1.8-2.4) mg/dl Total Bilirubin (0.2-1.0) mg/dL AST (15-37) U/L ALT (14-59) U/L Alkaline Phosphatase (46-116) U/L Troponin I (0.00-0.056) ng/mL C-Reactive Protein (<1.0) mg/dL NT-Pro-B Natriuret Pep (0-125) pg/mL Total Protein (6.4-8.2) g/dl Albumin (3.4-5.0) g/dl Globulin gm/dL Albumin/Globulin Ratio (1-2) Mycoplasma pneumon IgM (NEGATIVE) 07/15/19 07/15/19 Range/Units 05:22 05:22 WBC 4.48 (3.98-10.04) K/mm3 RBC 3.80 L (3.98-5.22) M/mm3 Hgb 11.4 (11.2-15.7) gm/dl Hct 36.9 (34.1-44.9) % MCV 97.1 H (79.4-94.8) fl MCH 30.0 (25.6-32.2) pg MCHC 30.9 L (32.2-35.5) g/dl RDW Std Deviation 45.2 (36.4-46.3) fL Plt Count 260 (182-369) K/mm3 MPV 10.3 (9.4-12.3) fl Neut % (Auto) 88.5 H (34.0-71.1) % Lymph % (Auto) 8.3 L (19.3-51.7) % Woodward % (Auto) 2.5 L (4.7-12.5) % Eos % (Auto) 0 L (0.7-5.8) Baso % (Auto) 0.0 L (0.1-1.2) % Neut # (Auto) 3.97 (1.56-6.13) K/mm3 Lymph # (Auto) 0.37 L (1.18-3.74) K/mm3 Woodward # (Auto) 0.11 L (0.24-0.36) K/mm3 Eos # (Auto) 0.00 L (0.04-0.36) K/mm3 Baso # (Auto) 0.00 L (0.01-0.08) K/mm3 Neutrophils % (Manual) (40-60) % Band Neutrophils % (0-10) % Lymphocytes % (Manual) (20-40) % Atypical Lymphs % % Monocytes % (Manual) (2-10) % Eosinophils % (Manual) (0.7-5.8) % Basophils % (Manual) (0.1-1.2) Manual Slide Review Abnormal smear Platelet Estimate Plt Morphology Comment Anisocytosis Microcytosis RBC Morph Comment PT (9.7-12.0) SECONDS INR APTT (22-31) SECONDS Puncture Site ABG pH (7.35-7.45) ABG pCO2 (35.0-45.0) mmHg ABG pO2 (80.0-100.0) mmHg ABG HCO3 (22.0-26.0) meq/L ABG O2 Saturation (96.0-97.0) % ABG Base Excess (-2-2.0) Perez Test A-a Gradient mmHg O2 Delivery Device Oxygen Flow Rate FiO2 (21.00-100.00) % Blood Gas Comments Sodium 140 (136-145) mEq/L Potassium 4.5 (3.5-5.1) mEq/L Chloride 99 (98-107) mEq/L Carbon Dioxide 38 H (21-32) mEq/L Anion Gap 7.5 (5-15) BUN 17 (7-18) mg/dL Creatinine 0.7 (0.55-1.02) mg/dL Est Cr Clr Drug Dosing 68.05 mL/min Estimated GFR (MDRD) > 60 (>60) mL/min BUN/Creatinine Ratio 24.3 H (14-18) Glucose 127 H (80-115) mg/dL Lactic Acid (0.4-2.0) mmol/L Calcium 9.2 (8.5-10.1) mg/dL Magnesium 2.0 (1.8-2.4) mg/dl Total Bilirubin 0.3 (0.2-1.0) mg/dL AST 24 (15-37) U/L ALT 32 (14-59) U/L Alkaline Phosphatase 107 (46-116) U/L Troponin I (0.00-0.056) ng/mL C-Reactive Protein 4.8 H* (<1.0) mg/dL NT-Pro-B Natriuret Pep (0-125) pg/mL Total Protein 7.4 (6.4-8.2) g/dl Albumin 3.4 (3.4-5.0) g/dl Globulin 4.0 gm/dL Albumin/Globulin Ratio 0.9 L (1-2) Mycoplasma pneumon IgM (NEGATIVE) Med Orders - Current: Current Medications Acetaminophen (Tylenol) 650 mg PO Q4H PRN PRN Reason: Pain (Mild 1-3)/fever Albuterol (Proventil Hfa) 0 gm INH Q4H PRN PRN Reason: Shortness of Breath Albuterol/Ipratropium (Duoneb 3.0-0.5 Mg/3 Ml) 3 ml NEB Q4HR ROD Last Admin: 07/15/19 08:46 Dose: 3 ml Azithromycin (Zithromax) 250 mg PO Q24H ROD Enoxaparin Sodium (Lovenox) 40 mg SUBCUT DAILY [facility] Furosemide (Lasix) 40 mg PO BID [facility] Last Admin: 07/15/19 08:11 Dose: 40 mg Guaifenesin (Mucinex) 1,200 mg PO BID [facility] Ceftriaxone Sodium 1 gm/ (Sodium Chloride) 100 mls @ 200 mls/hr IV Q24H [facility] Lorazepam (Ativan) 0.5 mg IVPUSH Q2H PRN PRN Reason: Anxiety Methylprednisolone Sodium Succinate (Solu-Medrol) 40 mg IVPUSH Q6H [facility] Last Admin: 07/15/19 08:04 Dose: 40 mg Montelukast Sodium (Singulair) 10 mg PO BEDTIME [facility] Last Admin: 07/14/19 20:15 Dose: 10 mg Ondansetron HCl (Zofran) 4 mg IV Q4H PRN PRN Reason: Nausea/Vomiting Potassium Chloride (Klor-Con M20) 20 meq PO DAILY [facility] Last Admin: 07/15/19 08:06 Dose: 20 meq Sodium Chloride (Saline Flush) 10 ml FLUSH ASDIRECTED PRN PRN Reason: Keep Vein Open Last Admin: 07/15/19 02:03 Dose: 10 ml Discontinued Medications Albuterol/Ipratropium (Duoneb 3.0-0.5 Mg/3 Ml) 3 ml NEB ONETIME ONE Stop: 07/14/19 13:07 Last Admin: 07/14/19 13:21 Dose: 3 ml Azithromycin 500 mg/ Sodium (Chloride) 250 mls @ 250 mls/hr IV ONETIME ONE Stop: 07/14/19 16:13 Last Admin: 07/14/19 17:41 Dose: 250 mls/hr Ceftriaxone Sodium 1 gm/ (Sodium Chloride) 100 mls @ 200 mls/hr IV ONETIME ONE Stop: 07/14/19 15:42 Last Admin: 07/14/19 16:02 Dose: 200 mls/hr Lorazepam (Ativan) 0.5 mg IVPUSH ONETIME ONE Stop: 07/14/19 18:49 Last Admin: 07/14/19 19:08 Dose: 0.5 mg Methylprednisolone Sodium Succinate (Solu-Medrol) 125 mg IVPUSH ONETIME ONE Stop: 07/14/19 13:14 Last Admin: 07/14/19 14:30 Dose: 125 mg - Exam Quality Assessment: Supplemental Oxygen General: Alert, Oriented HEENT: Pupils Equal Neck: Supple Lungs: Decreased Breath Sounds, Wheezing Cardiovascular: Regular Rate, Regular Rhythm GI/Abdominal Exam: Normal Bowel Sounds, Soft, Non-Tender Extremities: Normal Inspection, No Pedal Edema Skin: Warm Neurological: No New Focal Deficit Psy/Mental Status: Alert, Normal Affect, Normal Mood - Problem List Review Problem List Initiated/Reviewed/Updated: Yes - My Orders Last 24 Hours: My Active Orders 07/14/19 17:17 Oxygen Therapy [RC] PRN Up With Assistance [RC] ASDIRECTED VTE/DVT Education [RC] QSHIFT Vital Signs [RC] Q4HR Acetaminophen [Tylenol] 650 mg PO Q4H PRN Ondansetron [Zofran] 4 mg IV Q4H PRN Resuscitation Status Routine 07/14/19 17:21 Respiratory Care Assess and Treatment [CONS] Routine 07/14/19 17:27 Albuterol [Proventil HFA] See Dose Instructions INH Q4H PRN 07/14/19 20:00 methylPREDNISolone Sod Succ [Solu-MEDROL] 40 mg IVPUSH Q6H 07/14/19 21:00 Albuterol/Ipratropium [DuoNeb 3.0-0.5 MG/3 ML] 3 ml NEB Q4HR Montelukast [Singulair] 10 mg PO BEDTIME 07/14/19 22:30 Patient Status [ADT] Routine 07/14/19 Dinner Regular Diet [DIET] 07/15/19 00:11 LORazepam [Ativan] 0.5 mg IVPUSH Q2H PRN 07/15/19 09:00 Enoxaparin [Lovenox] 40 mg SUBCUT DAILY Furosemide [Lasix] 40 mg PO BID Potassium Chloride [Klor-Con M20] 20 meq PO DAILY guaiFENesin [Mucinex] 1,200 mg PO BID 07/15/19 15:00 cefTRIAXone [Rocephin] 1 gm Sodium Chloride 0.9% [Normal Saline] 100 ml IV Q24H 07/15/19 16:00 Azithromycin [Zithromax] 250 mg PO Q24H 07/16/19 05:11 C-REACTIVE PROTEIN [CHEM] AM CBC WITH AUTO DIFF [HEME] AM COMPREHENSIVE METABOLIC PN,CMP [CHEM] AM MAGNESIUM [CHEM] AM 07/17/19 05:11 C-REACTIVE PROTEIN [CHEM] AM CBC WITH AUTO DIFF [HEME] AM COMPREHENSIVE METABOLIC PN,CMP [CHEM] AM MAGNESIUM [CHEM] AM - Plan Plan:: Assessment * Acute exacerbation of COPD likely secondary to mycoplasma * Patient is on home oxygen of 4.5 L to 5 L * Mycoplasma antibody IgM positive * Increased respiratory rate with increased work of breathing * Hypercapnia * Acute respiratory failure - on BiPAP * PCO2 of 80 * Hypoxemia * Increased respiratory rate with increased respiratory effort * Sepsis risk * Hypertension with likely some underlying diastolic heart failure * On furosemide 40 mg twice a day At home Plan * ICU * BiPAP - may remove for meals. * hypertonic saline nebs * Rocephin 1 g every 24 hours * Azithromycin 500 mg IV 1 then 250 mg 4 days * Solu-Medrol 125 mg IV given in ER * Solu-Medrol 40 mg every 6 hours then taper over 5 days * Blood cultures * VTE prophylaxis with Lovenox * CODE STATUS: Full code * Length of stay anticipated 3-4 days
[2019-07-15] MEDS: Enoxaparin 40 MG/0.4 ML Syringe SUBCUT SCH (10:40)
[2019-07-15] MEDS: guaiFENesin 600 MG Tab.ER PO SCH ×2 (10:40→20:38)
[2019-07-15] MEDS: cefTRIAXone 1 GM in Sodium Chloride 0.9% 100 ML IV SCH (14:46)
--- NOTE | 2019-07-15 16:34 | CR ---
Chest: Two views of the chest were obtained. Comparison: Previous chest x-ray of 06/14/18. Heart is slightly enlarged. Tortuous thoracic aorta is seen. Diaphragms are flattened compatible with emphysematous change. Difficult to exclude mild pulmonary vascular congestion. Compression deformities are seen within the spine which are stable. Impression: 1. Increased central lung markings from prior exam. Difficult to exclude mild pulmonary vascular congestion. 2. Emphysematous changes and other findings as noted above. Diagnostic code #3
[2019-07-15] MEDS: Azithromycin 250 MG Tab PO SCH (17:02)
[2019-07-15] MEDS: Sodium Chloride 3% Inhalation Soln 15 ML Neb NEB SCH (18:18)
[2019-07-15] MEDS: Montelukast 10 MG Tab PO SCH (20:38)
[2019-07-15] MEDS ORDERED: Sodium Chloride 0.65% Nasal Spray 45 ML Bottle NAS PRN (21:57)
[2019-07-15] MEDS ORDERED: Sodium Chloride 3% Inhalation Soln 15 ML Neb NEB SCH ×2 (22:00→23:00)
[2019-07-15] MEDS ORDERED: Sodium Chloride 3% Inhalation Soln 4 ML Neb NEB SCH (23:00)
[2019-07-16] MEDS: Albuterol/Ipratropium 3.0-0.5 MG/3 ML Neb Soln NEB SCH ×6 (01:46→22:00)
[2019-07-16] MEDS: methylPREDNISolone Sodium Succinate 40 MG/1 ML SDV IVPUSH SCH ×3 (02:03→16:05)
[2019-07-16] MEDS: Furosemide 40 MG Tab PO SCH ×2 (08:17→16:03)
[2019-07-16] MEDS: Sodium Chloride 3% Inhalation Soln 4 ML Neb NEB SCH ×2 (08:26→20:23)
[2019-07-16] MEDS: Enoxaparin 40 MG/0.4 ML Syringe SUBCUT SCH (09:17)
[2019-07-16] MEDS: Potassium Chloride 20 MEQ Tab.ER PO SCH (09:17)
[2019-07-16] MEDS: guaiFENesin 600 MG Tab.ER PO SCH ×2 (09:17→21:43)
--- NOTE | 2019-07-16 11:12 | CR ---
Chest: Portable view of the chest was obtained. Comparison: Prior chest x-ray of 07/14/19. Findings: Heart is enlarged. Tortuous thoracic aorta is seen. Pulmonary vessels are less congested than seen on previous study. Minimal scarring is seen within the left lower lung. No acute parenchymal change otherwise seen. Bony structures are grossly intact. Impression: 1. Stable cardiomegaly. 2. Decreased pulmonary vascular congestion from prior exam. 3. No acute parenchymal change is appreciated. Diagnostic code #2
--- NOTE | 2019-07-16 15:00 | PCM.PN ---
- General Info Date of Service: 07/16/19 Admission Dx/Problem (Free Text): Admission Diagnosis/Problem Admission Diagnosis/Problem COPD not affecting current episode of care Subjective Update: Olga had a good night. Continued SOB, but feeling "a little better." - Review of Systems General: Reports: Fatigue. Denies: Fever HEENT: Reports: No Symptoms Pulmonary: Reports: Shortness of Breath, Cough, Wheezing Cardiovascular: Reports: No Symptoms Gastrointestinal: Reports: No Symptoms Musculoskeletal: Reports: No Symptoms Neurological: Reports: No Symptoms - Patient Data Vitals - Most Recent: Last Vital Signs Temp 99.0 F 07/16/19 14:41 Pulse 110 H 07/16/19 14:41 Resp 18 07/16/19 14:41 BP 134/61 07/16/19 14:41 Pulse Ox 93 L 07/16/19 14:41 Weight - Most Recent: 202 lb I&O - Last 24 Hours: Intake & Output 07/15/19 07/16/19 07/16/19 22:59 06:59 14:59 Intake Total 1680 600 0 Output Total 650 300 Balance 1030 300 0 Lab Results Last 24 Hours: Laboratory Results - last 24 hr 07/15/19 07/16/19 07/16/19 Range/Units 16:36 04:50 04:50 WBC 11.47 H (3.98-10.04) K/mm3 RBC 3.82 L (3.98-5.22) M/mm3 Hgb 11.4 (11.2-15.7) gm/dl Hct 37.8 (34.1-44.9) % MCV 99.0 H (79.4-94.8) fl MCH 29.8 (25.6-32.2) pg MCHC 30.2 L (32.2-35.5) g/dl RDW Std Deviation 46.6 H (36.4-46.3) fL Plt Count 311 (182-369) K/mm3 MPV 10.6 (9.4-12.3) fl Neut % (Auto) 94.2 H (34.0-71.1) % Lymph % (Auto) 3.6 L (19.3-51.7) % [place] % (Auto) 1.9 L (4.7-12.5) % Eos % (Auto) 0 L (0.7-5.8) Baso % (Auto) 0.0 L (0.1-1.2) % Neut # (Auto) 10.80 H (1.56-6.13) K/mm3 Lymph # (Auto) 0.41 L (1.18-3.74) K/mm3 [place] # (Auto) 0.22 L (0.24-0.36) K/mm3 Eos # (Auto) 0.00 L (0.04-0.36) K/mm3 Baso # (Auto) 0.00 L (0.01-0.08) K/mm3 Manual Slide Review Abnormal smear Puncture Site ABG pH (7.35-7.45) ABG pCO2 (35.0-45.0) mmHg ABG pO2 (80.0-100.0) mmHg ABG HCO3 (22.0-26.0) meq/L ABG O2 Saturation (96.0-97.0) % ABG Base Excess (-2-2.0) Perez Test VBG pH 7.32 (7.30-7.40) VBG pCO2 81.9 H (41-51) mmHg VBG pO2 42.0 (40-80) mmHG VBG HCO3 41.4 H (22-26) meq/L VBG O2 Saturation 68.7 VBG Base Excess 12.5 H (-4.0-2.0) A-a Gradient mmHg O2 Delivery Device Bipap Oxygen Flow Rate FiO2 (21.00-100.00) % Sodium 141 (136-145) mEq/L Potassium 4.3 (3.5-5.1) mEq/L Chloride 101 (98-107) mEq/L Carbon Dioxide 37 H (21-32) mEq/L Anion Gap 7.3 (5-15) BUN 22 H (7-18) mg/dL Creatinine 0.8 (0.55-1.02) mg/dL Est Cr Clr Drug Dosing 59.54 mL/min Estimated GFR (MDRD) > 60 (>60) mL/min BUN/Creatinine Ratio 27.5 H (14-18) Glucose 196 H (80-115) mg/dL Calcium 9.2 (8.5-10.1) mg/dL Magnesium 2.1 (1.8-2.4) mg/dl Total Bilirubin 0.2 (0.2-1.0) mg/dL AST 19 (15-37) U/L ALT 31 (14-59) U/L Alkaline Phosphatase 109 (46-116) U/L C-Reactive Protein 2.3 H* (<1.0) mg/dL NT-Pro-B Natriuret Pep (0-125) pg/mL Total Protein 7.2 (6.4-8.2) g/dl Albumin 3.3 L (3.4-5.0) g/dl Globulin 3.9 gm/dL Albumin/Globulin Ratio 0.9 L (1-2) 07/16/19 07/16/19 Range/Units 04:50 12:56 WBC (3.98-10.04) K/mm3 RBC (3.98-5.22) M/mm3 Hgb (11.2-15.7) gm/dl Hct (34.1-44.9) % MCV (79.4-94.8) fl MCH (25.6-32.2) pg MCHC (32.2-35.5) g/dl RDW Std Deviation (36.4-46.3) fL Plt Count (182-369) K/mm3 MPV (9.4-12.3) fl Neut % (Auto) (34.0-71.1) % Lymph % (Auto) (19.3-51.7) % [place] % (Auto) (4.7-12.5) % Eos % (Auto) (0.7-5.8) Baso % (Auto) (0.1-1.2) % Neut # (Auto) (1.56-6.13) K/mm3 Lymph # (Auto) (1.18-3.74) K/mm3 [place] # (Auto) (0.24-0.36) K/mm3 Eos # (Auto) (0.04-0.36) K/mm3 Baso # (Auto) (0.01-0.08) K/mm3 Manual Slide Review Puncture Site Lt radial ABG pH 7.38 (7.35-7.45) ABG pCO2 71.2 H* (35.0-45.0) mmHg ABG pO2 72.0 L (80.0-100.0) mmHg ABG HCO3 41.0 H (22.0-26.0) meq/L ABG O2 Saturation 93.2 L (96.0-97.0) % ABG Base Excess 13.0 H (-2-2.0) Perez Test Positive VBG pH (7.30-7.40) VBG pCO2 (41-51) mmHg VBG pO2 (40-80) mmHG VBG HCO3 (22-26) meq/L VBG O2 Saturation VBG Base Excess (-4.0-2.0) A-a Gradient 96 mmHg O2 Delivery Device Nasal cannula Oxygen Flow Rate 3.0 FiO2 32.00 (21.00-100.00) % Sodium (136-145) mEq/L Potassium (3.5-5.1) mEq/L Chloride (98-107) mEq/L Carbon Dioxide (21-32) mEq/L Anion Gap (5-15) BUN (7-18) mg/dL Creatinine (0.55-1.02) mg/dL Est Cr Clr Drug Dosing mL/min Estimated GFR (MDRD) (>60) mL/min BUN/Creatinine Ratio (14-18) Glucose (80-115) mg/dL Calcium (8.5-10.1) mg/dL Magnesium (1.8-2.4) mg/dl Total Bilirubin (0.2-1.0) mg/dL AST (15-37) U/L ALT (14-59) U/L Alkaline Phosphatase (46-116) U/L C-Reactive Protein (<1.0) mg/dL NT-Pro-B Natriuret Pep 375 H (0-125) pg/mL Total Protein (6.4-8.2) g/dl Albumin (3.4-5.0) g/dl Globulin gm/dL Albumin/Globulin Ratio (1-2) Med Orders - Current: Current Medications Acetaminophen (Tylenol) 650 mg PO Q4H PRN PRN Reason: Pain (Mild 1-3)/fever Albuterol (Proventil Hfa) 0 gm INH Q4H PRN PRN Reason: Shortness of Breath Albuterol/Ipratropium (Duoneb 3.0-0.5 Mg/3 Ml) 3 ml NEB Q4HR ROD Last Admin: 07/16/19 13:39 Dose: 3 ml Azithromycin (Zithromax) 250 mg PO Q24H ROD Last Admin: 07/15/19 17:02 Dose: 250 mg Enoxaparin Sodium (Lovenox) 40 mg SUBCUT DAILY [facility] Last Admin: 07/16/19 09:17 Dose: 40 mg Furosemide (Lasix) 40 mg PO BID@0600,1200 [facility] Last Admin: 07/16/19 08:17 Dose: 40 mg Guaifenesin (Mucinex) 1,200 mg PO BID [facility] Last Admin: 07/16/19 09:17 Dose: 1,200 mg Ceftriaxone Sodium 1 gm/ (Sodium Chloride) 100 mls @ 200 mls/hr IV Q24H [facility] Last Admin: 07/15/19 14:46 Dose: 200 mls/hr Lorazepam (Ativan) 0.5 mg IVPUSH Q2H PRN PRN Reason: Anxiety Methylprednisolone Sodium Succinate (Solu-Medrol) 40 mg IVPUSH Q8H [facility] Montelukast Sodium (Singulair) 10 mg PO BEDTIME [facility] Last Admin: 07/15/19 20:38 Dose: 10 mg Ondansetron HCl (Zofran) 4 mg IV Q4H PRN PRN Reason: Nausea/Vomiting Potassium Chloride (Klor-Con M20) 20 meq PO DAILY [facility] Last Admin: 07/16/19 09:17 Dose: 20 meq Sodium Chloride (Saline Flush) 10 ml FLUSH ASDIRECTED PRN PRN Reason: Keep Vein Open Last Admin: 07/15/19 02:03 Dose: 10 ml Sodium Chloride ([place] Nasal [place]) 1 ml JOCELYN Q2H PRN PRN Reason: Nasal Dryness Last Admin: 07/15/19 22:28 Dose: 1 spray Sodium Chloride (Sodium Chloride 3%) 3 ml NEB Q12H [facility] Last Admin: 07/16/19 08:26 Dose: 3 ml Discontinued Medications Albuterol/Ipratropium (Duoneb 3.0-0.5 Mg/3 Ml) 3 ml NEB ONETIME ONE Stop: 07/14/19 13:07 Last Admin: 07/14/19 13:21 Dose: 3 ml Furosemide (Lasix) 40 mg PO BID [facility] Last Admin: 07/15/19 20:38 Dose: Not Given Azithromycin 500 mg/ Sodium (Chloride) 250 mls @ 250 mls/hr IV ONETIME ONE Stop: 07/14/19 16:13 Last Admin: 07/14/19 17:41 Dose: 250 mls/hr Ceftriaxone Sodium 1 gm/ (Sodium Chloride) 100 mls @ 200 mls/hr IV ONETIME ONE Stop: 07/14/19 15:42 Last Admin: 07/14/19 16:02 Dose: 200 mls/hr Lorazepam (Ativan) 0.5 mg IVPUSH ONETIME ONE Stop: 07/14/19 18:49 Last Admin: 07/14/19 19:08 Dose: 0.5 mg Methylprednisolone Sodium Succinate (Solu-Medrol) 125 mg IVPUSH ONETIME ONE Stop: 07/14/19 13:14 Last Admin: 07/14/19 14:30 Dose: 125 mg Methylprednisolone Sodium Succinate (Solu-Medrol) 40 mg IVPUSH Q6H [facility] Last Admin: 07/16/19 09:17 Dose: 40 mg Sodium Chloride (Sodium Chloride 3%) 3 ml NEB Q4HRRT [facility] Last Admin: 07/15/19 18:18 Dose: Not Given Sodium Chloride (Sodium Chloride 3%) 3 ml NEB 0600,1800 [facility] Last Admin: 07/16/19 02:14 Dose: Not Given Sodium Chloride (Sodium Chloride 3%) 3 ml NEB Q12H [facility] Last Admin: 07/15/19 23:32 Dose: 3 ml - Exam Quality Assessment: Supplemental Oxygen General: Alert, Oriented HEENT: Pupils Equal Neck: Supple Lungs: Decreased Breath Sounds, Wheezing Cardiovascular: Regular Rate, Regular Rhythm GI/Abdominal Exam: Normal Bowel Sounds, Soft, Non-Tender, No Distention Extremities: Normal Inspection Skin: Warm, Dry, Intact Psy/Mental Status: Alert, Normal Affect, Normal Mood - Problem List Review Problem List Initiated/Reviewed/Updated: Yes - My Orders Last 24 Hours: My Active Orders 07/15/19 15:00 cefTRIAXone [Rocephin] 1 gm Sodium Chloride 0.9% [Normal Saline] 100 ml IV Q24H 07/15/19 16:00 Azithromycin [Zithromax] 250 mg PO Q24H 07/15/19 21:57 Sodium Chloride 0.65% [[place] Nasal [place]] 1 ml JOCELYN Q2H PRN 07/16/19 06:00 Furosemide [Lasix] 40 mg PO BID@0600,1200 07/16/19 09:00 Sodium Chloride 3% 3 ml NEB Q12H 07/16/19 13:38 Patient Status [ADT] Routine 07/16/19 17:00 methylPREDNISolone Sod Succ [Solu-MEDROL] 40 mg IVPUSH Q8H 07/17/19 05:11 C-REACTIVE PROTEIN [CHEM] AM CBC WITH AUTO DIFF [HEME] AM COMPREHENSIVE METABOLIC PN,CMP [CHEM] AM MAGNESIUM [CHEM] AM - Plan Plan:: Assessment * Acute exacerbation of COPD likely secondary to mycoplasma * Patient is on home oxygen of 4.5 L to 5 L * currently on 3 L nasal cannula * Mycoplasma antibody IgM positive * Increased respiratory rate with increased work of breathing * Hypercapnia - chronic * Acute respiratory failure - improved * PCO2 of 80 * Hypoxemia * Increased respiratory rate with increased respiratory effort * ABG: PH 7.38, PCO2 71.2, PO2 72.0, HCO3 41.0 * Hypertension with likely some underlying diastolic heart failure * On furosemide 40 mg twice a day at home Plan * Down grade to Med status * BiPAP - wall asleep * hypertonic saline nebs * Rocephin 1 g every 24 hours * Azithromycin 500 mg IV 1 then 250 mg 4 days * taper Solu-Medrol * Blood cultures * Echo * VTE prophylaxis with Lovenox * CODE STATUS: Full code * Length of stay anticipated 3-4 days
[2019-07-16] MEDS: cefTRIAXone 1 GM in Sodium Chloride 0.9% 100 ML IV SCH (16:05)
[2019-07-16] MEDS: Azithromycin 250 MG Tab PO SCH (16:05)
[2019-07-16] MEDS: Montelukast 10 MG Tab PO SCH (21:43)
[2019-07-17] MEDS: Albuterol/Ipratropium 3.0-0.5 MG/3 ML Neb Soln NEB SCH ×6 (01:00→21:25)
[2019-07-17] MEDS: methylPREDNISolone Sodium Succinate 40 MG/1 ML SDV IVPUSH SCH (01:00)
[2019-07-17] MEDS: Furosemide 40 MG Tab PO SCH ×2 (06:48→12:30)
[2019-07-17] MEDS: Potassium Chloride 20 MEQ Tab.ER PO SCH (08:47)
[2019-07-17] MEDS: Enoxaparin 40 MG/0.4 ML Syringe SUBCUT SCH (08:48)
[2019-07-17] MEDS: guaiFENesin 600 MG Tab.ER PO SCH ×2 (08:48→20:13)
[2019-07-17] MEDS: Sodium Chloride 3% Inhalation Soln 4 ML Neb NEB SCH ×2 (08:53→21:26)
[2019-07-17] MEDS: predniSONE 20 MG Tab PO SCH (12:31)
--- NOTE | 2019-07-17 12:37 | PCM.PN ---
- General Info Date of Service: 07/17/19 Admission Dx/Problem (Free Text): Admission Diagnosis/Problem Admission Diagnosis/Problem COPD not affecting current episode of care Subjective Update: Olga is doing better. She feels like she has something stuck in chest that wont come up. She only used her BiPAP for 2 hours last night. She refuse the q4h hypertonic saline 2 nights ago and is now getting it only q12h. She told nursing she doesn't like to cough up the phlegm. Functional Status: Reports: Pain Controlled - Review of Systems General: Reports: No Symptoms HEENT: Reports: No Symptoms Pulmonary: Reports: Shortness of Breath, Cough Cardiovascular: Reports: No Symptoms Gastrointestinal: Reports: No Symptoms - Patient Data Vitals - Most Recent: Last Vital Signs Temp 98.1 F 07/17/19 11:44 Pulse 95 07/17/19 11:44 Resp 18 07/17/19 11:44 BP 127/62 07/17/19 11:44 Pulse Ox 94 L 07/17/19 12:07 Weight - Most Recent: 201 lb 12.8 oz I&O - Last 24 Hours: Intake & Output 07/16/19 07/17/19 07/17/19 22:59 06:59 14:59 Intake Total 1500 800 240 Output Total 600 Balance 1500 200 240 Lab Results Last 24 Hours: Laboratory Results - last 24 hr 07/16/19 07/17/19 07/17/19 Range/Units 12:56 04:50 04:50 WBC 15.12 H (3.98-10.04) K/mm3 RBC 3.93 L (3.98-5.22) M/mm3 Hgb 11.7 (11.2-15.7) gm/dl Hct 38.9 (34.1-44.9) % MCV 99.0 H (79.4-94.8) fl MCH 29.8 (25.6-32.2) pg MCHC 30.1 L (32.2-35.5) g/dl RDW Std Deviation 46.9 H (36.4-46.3) fL Plt Count 361 (182-369) K/mm3 MPV 10.4 (9.4-12.3) fl Neut % (Auto) 89.4 H (34.0-71.1) % Lymph % (Auto) 4.0 L (19.3-51.7) % [place] % (Auto) 4.2 L (4.7-12.5) % Eos % (Auto) 1.7 (0.7-5.8) Baso % (Auto) 0.1 (0.1-1.2) % Neut # (Auto) 13.52 H (1.56-6.13) K/mm3 Lymph # (Auto) 0.61 L (1.18-3.74) K/mm3 [place] # (Auto) 0.64 H (0.24-0.36) K/mm3 Eos # (Auto) 0.25 (0.04-0.36) K/mm3 Baso # (Auto) 0.01 (0.01-0.08) K/mm3 Manual Slide Review Abnormal smear Puncture Site Lt radial ABG pH 7.38 (7.35-7.45) ABG pCO2 71.2 H* (35.0-45.0) mmHg ABG pO2 72.0 L (80.0-100.0) mmHg ABG HCO3 41.0 H (22.0-26.0) meq/L ABG O2 Saturation 93.2 L (96.0-97.0) % ABG Base Excess 13.0 H (-2-2.0) Perez Test Positive A-a Gradient 96 mmHg O2 Delivery Device Nasal cannula Oxygen Flow Rate 3.0 FiO2 32.00 (21.00-100.00) % Sodium 142 (136-145) mEq/L Potassium 4.5 (3.5-5.1) mEq/L Chloride 101 (98-107) mEq/L Carbon Dioxide 38 H (21-32) mEq/L Anion Gap 7.5 (5-15) BUN 25 H (7-18) mg/dL Creatinine 0.8 (0.55-1.02) mg/dL Est Cr Clr Drug Dosing 59.54 mL/min Estimated GFR (MDRD) > 60 (>60) mL/min BUN/Creatinine Ratio 31.3 H (14-18) Glucose 170 H (80-115) mg/dL Calcium 8.9 (8.5-10.1) mg/dL Magnesium 2.1 (1.8-2.4) mg/dl Total Bilirubin 0.1 L (0.2-1.0) mg/dL AST 24 (15-37) U/L ALT 41 (14-59) U/L Alkaline Phosphatase 104 (46-116) U/L C-Reactive Protein 1.1 H* (<1.0) mg/dL Total Protein 7.0 (6.4-8.2) g/dl Albumin 3.3 L (3.4-5.0) g/dl Globulin 3.7 gm/dL Albumin/Globulin Ratio 0.9 L (1-2) Med Orders - Current: Current Medications Acetaminophen (Tylenol) 650 mg PO Q4H PRN PRN Reason: Pain (Mild 1-3)/fever Albuterol (Proventil Hfa) 0 gm INH Q4H PRN PRN Reason: Shortness of Breath Albuterol/Ipratropium (Duoneb 3.0-0.5 Mg/3 Ml) 3 ml NEB Q4HR [facility] Last Admin: 07/17/19 12:05 Dose: 3 ml Azithromycin (Zithromax) 250 mg PO Q24H [facility] Last Admin: 07/16/19 16:05 Dose: 250 mg Cefdinir (Omnicef) 300 mg PO Q12H [facility] Enoxaparin Sodium (Lovenox) 40 mg SUBCUT DAILY [facility] Last Admin: 07/17/19 08:48 Dose: 40 mg Furosemide (Lasix) 40 mg PO BID@0600,1200 [facility] Last Admin: 07/17/19 12:30 Dose: 40 mg Guaifenesin (Mucinex) 1,200 mg PO BID [facility] Last Admin: 07/17/19 08:48 Dose: 1,200 mg Lorazepam (Ativan) 0.5 mg IVPUSH Q2H PRN PRN Reason: Anxiety Montelukast Sodium (Singulair) 10 mg PO BEDTIME [facility] Last Admin: 07/16/19 21:43 Dose: 10 mg Ondansetron HCl (Zofran) 4 mg IV Q4H PRN PRN Reason: Nausea/Vomiting Potassium Chloride (Klor-Con M20) 20 meq PO DAILY [facility] Last Admin: 07/17/19 08:47 Dose: 20 meq Prednisone (Prednisone) 40 mg PO WITHBREAKFAST [facility] Last Admin: 07/17/19 12:31 Dose: 40 mg Sodium Chloride (Saline Flush) 10 ml FLUSH ASDIRECTED PRN PRN Reason: Keep Vein Open Last Admin: 07/15/19 02:03 Dose: 10 ml Sodium Chloride ([place] Nasal [place]) 1 ml JOCELYN Q2H PRN PRN Reason: Nasal Dryness Last Admin: 07/15/19 22:28 Dose: 1 spray Sodium Chloride (Sodium Chloride 3%) 3 ml NEB Q12H ROD Last Admin: 07/17/19 08:53 Dose: 3 ml Discontinued Medications Albuterol/Ipratropium (Duoneb 3.0-0.5 Mg/3 Ml) 3 ml NEB ONETIME ONE Stop: 07/14/19 13:07 Last Admin: 07/14/19 13:21 Dose: 3 ml Furosemide (Lasix) 40 mg PO BID [facility] Last Admin: 07/15/19 20:38 Dose: Not Given Azithromycin 500 mg/ Sodium (Chloride) 250 mls @ 250 mls/hr IV ONETIME ONE Stop: 07/14/19 16:13 Last Admin: 07/14/19 17:41 Dose: 250 mls/hr Ceftriaxone Sodium 1 gm/ (Sodium Chloride) 100 mls @ 200 mls/hr IV ONETIME ONE Stop: 07/14/19 15:42 Last Admin: 07/14/19 16:02 Dose: 200 mls/hr Ceftriaxone Sodium 1 gm/ (Sodium Chloride) 100 mls @ 200 mls/hr IV Q24H [facility] Last Admin: 07/16/19 16:05 Dose: 200 mls/hr Lorazepam (Ativan) 0.5 mg IVPUSH ONETIME ONE Stop: 07/14/19 18:49 Last Admin: 07/14/19 19:08 Dose: 0.5 mg Methylprednisolone Sodium Succinate (Solu-Medrol) 125 mg IVPUSH ONETIME ONE Stop: 07/14/19 13:14 Last Admin: 07/14/19 14:30 Dose: 125 mg Methylprednisolone Sodium Succinate (Solu-Medrol) 40 mg IVPUSH Q6H [facility] Last Admin: 07/16/19 09:17 Dose: 40 mg Methylprednisolone Sodium Succinate (Solu-Medrol) 40 mg IVPUSH Q8H [facility] Last Admin: 07/17/19 01:00 Dose: 40 mg Sodium Chloride (Sodium Chloride 3%) 3 ml NEB Q4HRRT [facility] Last Admin: 07/15/19 18:18 Dose: Not Given Sodium Chloride (Sodium Chloride 3%) 3 ml NEB 0600,1800 [facility] Last Admin: 07/16/19 02:14 Dose: Not Given Sodium Chloride (Sodium Chloride 3%) 3 ml NEB Q12H [facility] Last Admin: 07/15/19 23:32 Dose: 3 ml - Exam Quality Assessment: Supplemental Oxygen General: Alert HEENT: Pupils Equal Neck: Supple Lungs: Decreased Breath Sounds, Wheezing Cardiovascular: Regular Rate, Regular Rhythm GI/Abdominal Exam: Soft, Non-Tender Extremities: Normal Range of Motion, Pedal Edema (2+ pitting) Skin: Warm, Dry, Intact Neurological: No New Focal Deficit Psy/Mental Status: Alert, Normal Affect, Normal Mood - Problem List Review Problem List Initiated/Reviewed/Updated: Yes - My Orders Last 24 Hours: My Active Orders 07/16/19 13:38 Patient Status [ADT] Routine 07/17/19 07:00 predniSONE 40 mg PO WITHBREAKFAST 07/17/19 07:58 Chest Physiotherapy [RT Chest Physiotherapy] [RC] ASDIRECTED 07/17/19 17:00 Cefdinir [Omnicef] 300 mg PO Q12H - Plan Plan:: Assessment * Acute exacerbation of COPD likely secondary to mycoplasma * Patient is on home oxygen of 4.5 L to 5 L * currently on 3.5 L nasal cannula * Mycoplasma antibody IgM positive * Increased respiratory rate with increased work of breathing - improved * Hypercapnia - chronic * CRP continues to fall, but WBC increased likely due to steroid effect. * Acute respiratory failure - resolved * PCO2 of 80 on admission and increased to 88. * Hypoxemia - improved * Increased respiratory rate with increased respiratory effort - improved * ABG: PH 7.38, PCO2 71.2, PO2 72.0, HCO3 41.0 * Hypertension with likely some underlying diastolic heart failure * On furosemide 40 mg twice a day at home * Echo pending Plan * Med status * [place] * Chest physiotherapy * hypertonic saline nebs * Switch to oral cefdinir. * Azithromycin 500 mg IV 1 then 250 mg 4 days (4/5 days) * Switch to oral steroids * Echo - pending * VTE prophylaxis with Lovenox * CODE STATUS: Full code * Length of stay longer than 96 hours due to slow resolution of symptoms.
[2019-07-17] MEDS: Azithromycin 250 MG Tab PO SCH (16:59)
[2019-07-17] MEDS: Cefdinir 300 MG Cap PO SCH (16:59)
[2019-07-17] MEDS: Montelukast 10 MG Tab PO SCH (20:12)
[2019-07-18] MEDS: Albuterol/Ipratropium 3.0-0.5 MG/3 ML Neb Soln NEB SCH ×6 (01:14→20:30)
[2019-07-18] MEDS: Furosemide 40 MG Tab PO SCH ×2 (06:20→13:26)
[2019-07-18] MEDS: predniSONE 20 MG Tab PO SCH (06:21)
[2019-07-18] MEDS: Cefdinir 300 MG Cap PO SCH (06:21)
[2019-07-18] MEDS: Acetylcysteine 20% 200 MG/ML 4 ML Nebulizer Soln SDV NEB SCH ×4 (07:59→20:31)
[2019-07-18] MEDS: guaiFENesin 600 MG Tab.ER PO SCH (08:16)
[2019-07-18] MEDS: Enoxaparin 40 MG/0.4 ML Syringe SUBCUT SCH (08:17)
[2019-07-18] MEDS: Potassium Chloride 20 MEQ Tab.ER PO SCH (08:17)
[2019-07-18] MEDS: LORazepam 2 MG/ML SDV IVPUSH PRN ×3 (08:51→22:31)
[2019-07-18] MEDS: methylPREDNISolone Sodium Succinate 125 MG/2 ML SDV IVPUSH SCH (11:08)
[2019-07-18] MEDS: Budesonide 0.5 MG/2 ML Neb Susp NEB SCH (12:07)
--- NOTE | 2019-07-18 12:46 | PCM.PN ---
- General Info Date of Service: 07/18/19 Admission Dx/Problem (Free Text): Admission Diagnosis/Problem Admission Diagnosis/Problem COPD not affecting current episode of care Subjective Update: In to see Olga. She had a difficult AM as she became more dyspneic. Steroids were increased and we started Pulmicort and Mucomyst. Olga reports she feels much better this afternoon and her biggest complaint is "this cough and mucous in my throat." Cefepime was stopped and azithromycin continued to treat her positive mycoplasma. WBC is elevated 2/2 steroid administration. Functional Status: Reports: Pain Controlled, Tolerating Diet, Ambulating, Urinating, Incentive Spirometry, Other (Acapella ). Denies: New Symptoms - Review of Systems General: Reports: Weakness (improving ). Denies: Fever, Fatigue, Malaise, Chills HEENT: Reports: Post Nasal Drip, Sore Throat (mild 2/2 coughing ). Denies: Headaches Pulmonary: Reports: Shortness of Breath (improved this afternoon ), Cough. Denies: Sputum, Wheezing Cardiovascular: Reports: Dyspnea on Exertion (improved ), Edema. Denies: Chest Pain, Palpitations Gastrointestinal: Reports: No Symptoms. Denies: Abdominal Pain, Constipation, Diarrhea, Nausea, Vomiting Genitourinary: Reports: No Symptoms. Denies: Pain Musculoskeletal: Reports: No Symptoms Skin: Reports: No Symptoms. Denies: Cyanosis Neurological: Reports: No Symptoms. Denies: Confusion Psychiatric: Reports: No Symptoms - Patient Data Vitals - Most Recent: Last Vital Signs Temp 98.1 F 07/18/19 07:54 Pulse 87 07/18/19 07:54 Resp 20 07/18/19 07:54 BP 143/73 H 07/18/19 07:54 Pulse Ox 91 L 07/18/19 12:07 Weight - Most Recent: 203 lb 3.2 oz I&O - Last 24 Hours: Intake & Output 07/17/19 07/18/19 07/18/19 22:59 06:59 14:59 Intake Total 580 600 Output Total 600 300 Balance -20 300 Lab Results Last 24 Hours: Laboratory Results - last 24 hr 07/18/19 Range/Units 07:21 WBC 14.41 H (3.98-10.04) K/mm3 RBC 4.43 (3.98-5.22) M/mm3 Hgb 13.3 D (11.2-15.7) gm/dl Hct 44.4 (34.1-44.9) % MCV 100.2 H (79.4-94.8) fl MCH 30.0 (25.6-32.2) pg MCHC 30.0 L (32.2-35.5) g/dl RDW Std Deviation 48.5 H (36.4-46.3) fL Plt Count 390 H (182-369) K/mm3 MPV 9.8 (9.4-12.3) fl Neut % (Auto) 71.4 H (34.0-71.1) % Lymph % (Auto) 16.0 L (19.3-51.7) % [place] % (Auto) 11.0 (4.7-12.5) % Eos % (Auto) 0.4 L (0.7-5.8) Baso % (Auto) 0.2 (0.1-1.2) % Neut # (Auto) 10.29 H (1.56-6.13) K/mm3 Lymph # (Auto) 2.30 (1.18-3.74) K/mm3 [place] # (Auto) 1.59 H (0.24-0.36) K/mm3 Eos # (Auto) 0.06 (0.04-0.36) K/mm3 Baso # (Auto) 0.03 (0.01-0.08) K/mm3 Manual Slide Review Abnormal smear Med Orders - Current: Current Medications Acetaminophen (Tylenol) 650 mg PO Q4H PRN PRN Reason: Pain (Mild 1-3)/fever Acetylcysteine (Mucomyst 20%) 800 mg NEB Q12H [facility] Last Admin: 07/18/19 07:59 Dose: Not Given Acetylcysteine (Mucomyst 20%) 800 mg NEB Q12H [facility] Last Admin: 07/18/19 08:20 Dose: 800 mg Albuterol (Proventil Hfa) 0 gm INH Q4H PRN PRN Reason: Shortness of Breath Albuterol/Ipratropium (Duoneb 3.0-0.5 Mg/3 Ml) 3 ml NEB Q4HR [facility] Last Admin: 07/18/19 12:07 Dose: 3 ml Azithromycin (Zithromax) 250 mg PO Q24H [facility] Last Admin: 07/17/19 16:59 Dose: 250 mg Budesonide (Pulmicort) 0.5 mg NEB Q12H [facility] Last Admin: 07/18/19 12:07 Dose: 0.5 mg Enoxaparin Sodium (Lovenox) 40 mg SUBCUT DAILY [facility] Last Admin: 07/18/19 08:17 Dose: 40 mg Furosemide (Lasix) 40 mg PO BID@0600,1200 [facility] Last Admin: 07/18/19 06:20 Dose: 40 mg Guaifenesin (Mucinex) 1,200 mg PO BID [facility] Last Admin: 07/18/19 08:16 Dose: 1,200 mg Lorazepam (Ativan) 0.5 mg IVPUSH Q2H PRN PRN Reason: Anxiety Last Admin: 07/18/19 08:51 Dose: 0.5 mg Methylprednisolone Sodium Succinate (Solu-Medrol) 125 mg IVPUSH DAILY [facility] Last Admin: 07/18/19 11:08 Dose: 125 mg Montelukast Sodium (Singulair) 10 mg PO BEDTIME [facility] Last Admin: 07/17/19 20:12 Dose: 10 mg Ondansetron HCl (Zofran) 4 mg IV Q4H PRN PRN Reason: Nausea/Vomiting Potassium Chloride (Klor-Con M20) 20 meq PO DAILY [facility] Last Admin: 07/18/19 08:17 Dose: 20 meq Sodium Chloride (Saline Flush) 10 ml FLUSH ASDIRECTED PRN PRN Reason: Keep Vein Open Last Admin: 07/15/19 02:03 Dose: 10 ml Sodium Chloride ([place] Nasal [place]) 1 ml JOCELYN Q2H PRN PRN Reason: Nasal Dryness Last Admin: 07/15/19 22:28 Dose: 1 spray Discontinued Medications Albuterol/Ipratropium (Duoneb 3.0-0.5 Mg/3 Ml) 3 ml NEB ONETIME ONE Stop: 07/14/19 13:07 Last Admin: 07/14/19 13:21 Dose: 3 ml Budesonide (Pulmicort) 0.5 mg NEB BIDRT [facility] Cefdinir (Omnicef) 300 mg PO Q12H [facility] Last Admin: 07/18/19 06:21 Dose: 300 mg Furosemide (Lasix) 40 mg PO BID [facility] Last Admin: 07/15/19 20:38 Dose: Not Given Azithromycin 500 mg/ Sodium (Chloride) 250 mls @ 250 mls/hr IV ONETIME ONE Stop: 07/14/19 16:13 Last Admin: 07/14/19 17:41 Dose: 250 mls/hr Ceftriaxone Sodium 1 gm/ (Sodium Chloride) 100 mls @ 200 mls/hr IV ONETIME ONE Stop: 07/14/19 15:42 Last Admin: 07/14/19 16:02 Dose: 200 mls/hr Ceftriaxone Sodium 1 gm/ (Sodium Chloride) 100 mls @ 200 mls/hr IV Q24H [facility] Last Admin: 07/16/19 16:05 Dose: 200 mls/hr Lorazepam (Ativan) 0.5 mg IVPUSH ONETIME ONE Stop: 07/14/19 18:49 Last Admin: 07/14/19 19:08 Dose: 0.5 mg Methylprednisolone Sodium Succinate (Solu-Medrol) 125 mg IVPUSH ONETIME ONE Stop: 07/14/19 13:14 Last Admin: 07/14/19 14:30 Dose: 125 mg Methylprednisolone Sodium Succinate (Solu-Medrol) 40 mg IVPUSH Q6H [facility] Last Admin: 07/16/19 09:17 Dose: 40 mg Methylprednisolone Sodium Succinate (Solu-Medrol) 40 mg IVPUSH Q8H [facility] Last Admin: 07/17/19 01:00 Dose: 40 mg Prednisone (Prednisone) 40 mg PO WITHBREAKFAST [facility] Last Admin: 07/18/19 06:21 Dose: 40 mg Sodium Chloride (Sodium Chloride 3%) 3 ml NEB Q4HRRT [facility] Last Admin: 07/15/19 18:18 Dose: Not Given Sodium Chloride (Sodium Chloride 3%) 3 ml NEB 0600,1800 [facility] Last Admin: 07/16/19 02:14 Dose: Not Given Sodium Chloride (Sodium Chloride 3%) 3 ml NEB Q12H [facility] Last Admin: 07/15/19 23:32 Dose: 3 ml Sodium Chloride (Sodium Chloride 3%) 3 ml NEB Q12H [facility] Last Admin: 07/17/19 21:26 Dose: 3 ml - Exam Quality Assessment: Supplemental Oxygen (3L - better than baseline ), DVT Prophylaxis General: Alert, Oriented, Cooperative, No Acute Distress HEENT: Pupils Equal, Pupils Reactive, Mucous Membr. Moist/[place] Neck: Supple, Trachea Midline Lungs: Normal Respiratory Effort, Decreased Breath Sounds. No: Crackles, Rhonchi, Wheezing Cardiovascular: Regular Rate, Regular Rhythm GI/Abdominal Exam: Normal Bowel Sounds, Soft, Non-Tender, No Distention, No Abnormal Bruit (Female) Exam: Deferred Back Exam: Normal Inspection, Full Range of Motion Extremities: Normal Inspection, Normal Range of Motion, Non-Tender, Normal Capillary Refill, Pedal Edema (1-2+) Skin: Warm, Dry, Intact Neurological: No New Focal Deficit Psy/Mental Status: Alert, Normal Affect - Problem List & Annotations (1) Mycoplasma pneumonia SNOMED Code(s): 41628168 Code(s): J15.7 - PNEUMONIA DUE TO MYCOPLASMA PNEUMONIAE Status: Acute Priority: High Current Visit: Yes Qualifiers: Laterality: unspecified laterality Lung location: unspecified part of lung Qualified Code(s): J15.7 - Pneumonia due to Mycoplasma pneumoniae (2) COPD exacerbation SNOMED Code(s): 578737499 Code(s): J44.1 - CHRONIC OBSTRUCTIVE PULMONARY DISEASE W (ACUTE) EXACERBATION Status: Acute Priority: High Current Visit: Yes (3) Bronchitis SNOMED Code(s): 56962194 Code(s): J40 - BRONCHITIS, NOT SPECIFIED ACUTE OR CHRONIC Status: Acute Priority: High Current Visit: Yes - Problem List Review Problem List Initiated/Reviewed/Updated: Yes - My Orders Last 24 Hours: My Active Orders 07/18/19 09:44 RT Incentive Spirometry [RC] ASDIRECTED - Plan Plan:: Assessment * Acute exacerbation of COPD likely secondary to mycoplasma * Patient is on home oxygen of 3.5 L to 4.5 L * Currently on 3.5 L nasal cannula at baseline -> down to 3L today * Mycoplasma antibody IgM positive * Increased respiratory rate with increased work of breathing - improved * Hypercapnia - chronic * CRP continues to fall, but WBC increased likely due to steroid effect. * Acute respiratory failure - resolved * PCO2 of 80 on admission and increased to 88. * Hypoxemia - improved * Increased respiratory rate with increased respiratory effort - improved * ABG: PH 7.38, PCO2 71.2, PO2 72.0, HCO3 41.0 * Hypertension with likely some underlying diastolic heart failure, resolved * On furosemide 40 mg twice a day at home * Echo obtained on 07/17/19: 1. LVEF, by visual estimation, is 60-65% 2. Normal LV size and wall thickness, with normal systolic function. 3. Impaired (Grade 1) pattern of LV diastolic filling 4. The inferior vena cava is normal Plan * Med floor status * Acapella/IS * Chest physiotherapy * hypertonic saline nebs * Start Pulmicort BID * Continue BiPAP at night * Increase scheduled Robitussin DM to TID * Discontinue cefdinir * Azithromycin 500 mg IV 1 then 250 mg 4 days (4/5 days) * Switch from PO to IV steroids today due to worsening conditions - re-evaluate in AM if IV dosing needed to continue * Repeat CXR tomorrow AM * VTE prophylaxis with Lovenox * RT consult * CODE STATUS: Full code * Length of stay longer than 96 hours due to slow resolution of symptoms. * Likely discharge in 1-2 more days
[2019-07-18] MEDS ORDERED: guaiFENesin/Dextromethorphan 100-10 MG/5 ML Soln 5 ML Cup PO PRN (14:00)
[2019-07-18] MEDS: Azithromycin 250 MG Tab PO SCH (16:52)
[2019-07-18] MEDS ORDERED: Budesonide 0.5 MG/2 ML Neb Susp NEB SCH (21:00)
[2019-07-18] MEDS ORDERED: Metoprolol Tartrate 5 MG/5 ML SDV IVPUSH ONE (21:22)
[2019-07-18] MEDS: Metoprolol Tartrate 5 MG/5 ML SDV ONE ×2 (21:24→21:36)
[2019-07-18] MEDS: Montelukast 10 MG Tab PO SCH (21:39)
[2019-07-19] MEDS: Budesonide 0.5 MG/2 ML Neb Susp NEB SCH ×2 (01:59→12:00)
[2019-07-19] MEDS: Acetylcysteine 20% 200 MG/ML 4 ML Nebulizer Soln SDV NEB SCH ×5 (05:29→20:13)
[2019-07-19] MEDS ORDERED: Ipratropium 0.02% 0.5 MG/2.5 ML Neb Soln NEB SCH (06:00)
[2019-07-19] MEDS: Furosemide 40 MG Tab PO SCH ×2 (06:47→11:54)
[2019-07-19] MEDS: methylPREDNISolone Sodium Succinate 125 MG/2 ML SDV IVPUSH SCH (08:34)
[2019-07-19] MEDS: Enoxaparin 40 MG/0.4 ML Syringe SUBCUT SCH (08:37)
[2019-07-19] MEDS: Potassium Chloride 20 MEQ Tab.ER PO SCH (08:37)
[2019-07-19] MEDS: Codeine/guaiFENesin 100-10 MG/5 ML Syrup 5 ML Cup PO SCH ×2 (10:16→15:49)
[2019-07-19] MEDS: Levalbuterol HCl 1.25 MG/0.5 ML Neb NEB SCH ×4 (12:00→20:14)
--- NOTE | 2019-07-19 12:54 | PCM.PN ---
- General Info Date of Service: 07/19/19 Subjective Update: Slept better Shortness of breath with interval improvement BM yesterday Tolerating diet - Patient Data Vitals - Most Recent: Last Vital Signs Temp 98.2 F 07/19/19 04:26 Pulse 52 L 07/19/19 08:44 Resp 22 H 07/19/19 08:44 BP 169/68 H 07/19/19 08:44 Pulse Ox 90 L 07/19/19 12:00 Weight - Most Recent: 91.716 kg - Exam Quality Assessment: Supplemental Oxygen General: Alert, Oriented, Mild Distress HEENT: Pupils Equal, Pupils Reactive, Mucous Membr. Moist/[place] Neck: Supple, Trachea Midline, No JVD Lungs: Decreased Breath Sounds, Rhonchi. No: Crackles, Rub, Stridor, Wheezing Cardiovascular: Regular Rate, Regular Rhythm. No: Murmurs, Gallops, Rubs GI/Abdominal Exam: Normal Bowel Sounds, Soft, Non-Tender. No: Distended, Guarding, Rebound Back Exam: Normal Inspection Extremities: Normal Inspection, Pedal Edema Neurological: No New Focal Deficit Psy/Mental Status: Alert, Normal Affect, Normal Mood - Problem List & Annotations (1) Bronchitis SNOMED Code(s): 92623827 Code(s): J40 - BRONCHITIS, NOT SPECIFIED ACUTE OR CHRONIC Status: Acute Priority: High Current Visit: Yes (2) COPD exacerbation SNOMED Code(s): 386049552 Code(s): J44.1 - CHRONIC OBSTRUCTIVE PULMONARY DISEASE W (ACUTE) EXACERBATION Status: Acute Priority: High Current Visit: Yes (3) Community acquired pneumonia SNOMED Code(s): 252152018 Code(s): J18.9 - PNEUMONIA, UNSPECIFIED ORGANISM Status: Acute Current Visit: Yes Qualifiers: Laterality: right Lung location: unspecified part of lung Qualified Code( s): J18.9 - Pneumonia, unspecified organism (4) Mycoplasma pneumonia SNOMED Code(s): 06342577 Code(s): J15.7 - PNEUMONIA DUE TO MYCOPLASMA PNEUMONIAE Status: Acute Priority: High Current Visit: Yes Qualifiers: Laterality: unspecified laterality Lung location: unspecified part of lung Qualified Code(s): J15.7 - Pneumonia due to Mycoplasma pneumoniae (5) COPD (chronic obstructive pulmonary disease) SNOMED Code(s): 00802485 Code(s): J44.9 - CHRONIC OBSTRUCTIVE PULMONARY DISEASE, UNSPECIFIED Status : Acute Current Visit: No Qualifiers: COPD type: emphysema Emphysema type: panlobular Qualified Code(s): J43.1 - Panlobular emphysema (6) Acute hypoxemic respiratory failure SNOMED Code(s): 746987435 Code(s): J96.01 - ACUTE RESPIRATORY FAILURE WITH HYPOXIA Status: Acute Current Visit: Yes (7) Acute on chronic respiratory failure with hypoxemia SNOMED Code(s): 66265511834225348 Code(s): J96.21 - ACUTE AND CHRONIC RESPIRATORY FAILURE WITH HYPOXIA Status : Acute Current Visit: Yes (8) Grade I diastolic dysfunction SNOMED Code(s): 2776308 Code(s): I51.9 - HEART DISEASE, UNSPECIFIED Status: Acute Current Visit: Yes - Problem List Review Problem List Initiated/Reviewed/Updated: Yes - Plan Plan:: Community acquired pneumonia 2/2 Mycoplasma pneumoniae Acute on chronic respiratory failure with hypoxemia COPD exacerbation COPD (chronic obstructive pulmonary disease) Home O2 dependent 3.5-4.5L NC Difficulty expectorating secretions Started on Azithromycin on admission, completed allotted 5 days today Qualified fir home BiPAP PLAN - Budesonide neb BID - Mucomyst q4h - Guaifenesin and codeine syrup q4h - Solumedrol IV 125mg QD - Chest PT - Scheduled hypertonic saline nebs - Incentive spirometry Grade I diastolic dysfunction, echocardiogram 06/2019 Likely 2/2 respiratory issues No report of pulmonary HTN PLAN - Manage pulmonary problems PROPHYLAXIS DVT- Lovenox GI- not indicated CODE STATUS: FULL CODE DISPOSITION: Admitted with COPD exacerbation, completed treatment for mycoplasma. Scheduled breathing treatments, increased frequency today. Qualified for BiPAP Discharge depending on oxygenation and respiratory status improvement.
[2019-07-19] MEDS: guaiFENesin 600 MG Tab.ER PO SCH (20:46)
[2019-07-19] MEDS: Montelukast 10 MG Tab PO SCH (20:46)
[2019-07-20] MEDS: Budesonide 0.5 MG/2 ML Neb Susp NEB SCH ×2 (00:35→12:17)
[2019-07-20] MEDS: Levalbuterol HCl 1.25 MG/0.5 ML Neb NEB SCH ×5 (00:35→16:03)
[2019-07-20] MEDS: Acetylcysteine 20% 200 MG/ML 4 ML Nebulizer Soln SDV NEB SCH ×5 (00:35→16:03)
[2019-07-20] MEDS: LORazepam 2 MG/ML SDV IVPUSH PRN (01:08)
[2019-07-20] MEDS: Furosemide 40 MG Tab PO SCH ×2 (07:50→12:56)
--- NOTE | 2019-07-20 08:03 | CR ---
Chest: Two views of the chest were obtained. Comparison: Prior chest x-ray of 07/16/19. Heart size is normal. Tortuous thoracic aorta is seen. Diaphragms are flattened on the lateral view compatible with emphysematous change. Compression deformities are noted within the mid and lower thoracic spine which appear stable. No acute parenchymal change is appreciated. Impression: 1. Emphysematous change. 2. Other findings which are stable. 3. Nothing acute is suspected on two-view chest x-ray. Diagnostic code #2 This report was dictated in [place] Standard Time I agree with preliminary report issued by [facility] ([facility] report finalized on 07/19/19, 10:03 AM Central Time
[2019-07-20] MEDS: guaiFENesin 600 MG Tab.ER PO SCH (08:11)
[2019-07-20] MEDS: Potassium Chloride 20 MEQ Tab.ER PO SCH (08:12)
[2019-07-20] MEDS: Enoxaparin 40 MG/0.4 ML Syringe SUBCUT SCH (08:15)
[2019-07-20] MEDS: methylPREDNISolone Sodium Succinate 125 MG/2 ML SDV IVPUSH SCH (08:15)
--- NOTE | 2019-07-20 14:28 | PCM.DCSUM1 ---
Discharge Summary - Hospital Course HPI Initial Comments: 64-year-old female with severe COPD presented to the emergency room with shortness of breath that started this morning. Patient states that she has been on oxygen since 2012, the same time she stops smoking, and is now on 4.5 L daily and 5.0 L with activity. She states that she has been prescribed 5.0 L with sleep but does not use it because it's too much. She does use a 4.5 L at sleep though. Patient states that she today she had some worsening shortness of breath with dyspnea on exertion from her bed to her bathroom. She states that everyone in her house has been sick. She did cough yellowish sputum up-to-date. She denies any fever or chills. She has a history of hypertension but no history of heart disease although she is on Lasix twice a day. In the emergency room patient was given DuoNeb, EKG, chest x-ray, Solu-Medrol 125 mg IV, and lab work. Laboratory pertinent positives: Bicarbonate 42, proBNP 170, mycoplasma pneumonia IgM positive. Pertinent negatives: CBC 8.3, 71% neutrophils with 0% bands, normal electrolytes, BUN 17, creatinine 0.8 with an estimated GFR greater than 60, troponin I less than 0.017. Chest x-ray shows some increased basilar congestion but otherwise negative. ABG was performed: PH 7.34, PCO2 of 80.4, PO2 of 79, HCO3 41.7. Acute on chronic history acidosis with metabolic alkalosis reevaluation of the chest x-ray demonstrates left lower lobe infiltrate losing the heart border. This is consistent with pneumonia. Diagnosis: Stroke: No - Discharge Data Discharge Date: 07/20/19 (Admit date: 07/14/19) Discharge Disposition: Home, Self-Care 01 Condition: Good - Referral to Home Health Primary Care Physician: Harvey Sainz MD - Discharge Diagnosis/Problem(s) (1) Mycoplasma pneumonia SNOMED Code(s): 04406175 ICD Code: J15.7 - PNEUMONIA DUE TO MYCOPLASMA PNEUMONIAE Status: Acute Priority: High Current Visit: Yes Qualifiers: Laterality: unspecified laterality Lung location: unspecified part of lung Qualified Code(s): J15.7 - Pneumonia due to Mycoplasma pneumoniae (2) COPD exacerbation SNOMED Code(s): 142318075 ICD Code: J44.1 - CHRONIC OBSTRUCTIVE PULMONARY DISEASE W (ACUTE) EXACERBATION Status: Acute Priority: High Current Visit: Yes (3) Bronchitis SNOMED Code(s): 48375599 ICD Code: J40 - BRONCHITIS, NOT SPECIFIED ACUTE OR CHRONIC Status: Acute Priority: High Current Visit: Yes (4) Trerk-[id number] deficiency SNOMED Code(s): 78318489 ICD Code: E88.01 - [id number] DEFICIENCY Status: Acute Priority : High Current Visit: Yes (5) Acute hypoxemic respiratory failure SNOMED Code(s): 463557463 ICD Code: J96.01 - ACUTE RESPIRATORY FAILURE WITH HYPOXIA Status: Resolved Priority: High Current Visit: Yes - Patient Summary/Data Consults: Consultations 07/14/19 17:21 Respiratory Care Assess and Treatment [CONS] Routine Labs Pending at D/C: Serum blastomycosis, cryptosporidium, histoplasmosis, and aspergillus all pending Recommended Follow-up Testing/Procedures: Follow-up with primary care provider within 5-7 days of discharge. Follow-up with pulmonology as scheduled. Recommend outpatient PFT after symptoms resolve. Hospital Course: Olga was admitted to the hospital floor due to acute on chronic respiratory failure with hypoxemia and community-acquired pneumonia. She also has a history of COPD and is thought to be having a COPD exacerbation. She is normally on home oxygen at 3.5 L to 4.5 L. In the ED she was up to 5 L and was able to be weaned back to her home dose. Mycoplasma did return positive and she was treated with 5 days of azithromycin. She did complete her treatment prior to being discharged. She was given albuterol and DuoNeb nebulizers which resulted in her being quite tachycardic. She was then switched to Xopenex. She started on budesonide nebulizer twice a day and Mucomyst every 4 hours. She was also prescribed guaifenesin and codeine cough syrup. Her given and RT did give her chest PT. She was given incentive spirometry and Acapella. Prior to discharge she was qualified for BiPAP at home. ABG obtained during this qualification showed a pH of 7.34, PCO2 of 92.9, PO2 77, HCO3 of 48.7, and oxygen saturations of 92.7. On a nasal cannula at 3.5 L. She was instructed to utilize her BiPAP while she sleeps and every time she naps. Rest voice therapy did set her up with a home percussion vest. [place] and should arrive at her house shortly. Labs did show a elevated white count, which is thought to be due to steroid use. Echocardiogram was obtained and does show grade 1 diastolic dysfunction which is likely secondary to her respiratory issues. As noted she was weaned back to her home oxygen use. She did complain of a sensation of being able to cough out whatever is in her chest. Did discuss how this will likely take some time, combined with our current treatment plan. She reports she does have significant shortness of breath at baseline. Prior to discharge serum blastomycosis, cryptosporidium, histoplasmosis, Aspergillus were obtained and are all still pending. It was recommended she follow with her primary care provider within 5-7 days of discharge. She does have an appointment scheduled with her boiler coverer as she made need bronchoscopy. We are also recommending that she obtain an outpatient PFT once her symptoms subside. Prior to discharge she was prescribed nebulized 1.25 mg Xopenex every 6 hours, 800 mg twice a day Mucomyst , 0.5 mg nebulized Pulmicort every 12 hours, 1200 mg by mouth twice a day Mucinex, and a Medrol Dosepak. Home medications were adjusted and she is aware that these are subject to change as she finishes her hospital treatment. She was discharged home today. - Patient Instructions Diet: Heart Healthy Diet Activity: As Tolerated Showering/Bathing: May Shower Notify Provider of: Fever, Increased Pain, Nausea and/or Vomiting Other/Special Instructions: Follow-up with primary care provider within 5-7 days of discharge, sooner if needed. Follow-up with pulmonology as directed. You may neeed a bronchoscopy where they put a camera into your lungs to look around. Take all new medications as directed. Some of your home medications were discontinued while you are finishing your new medications prescribed at discharge. You should discuss home medications with your primary care provider and boiler coverer at your next appointments. You were prescribed a percussion vest. This will be sent to you from a company out of state. They will be in contact with you. We took some blood for a specialty lung test prior to you being discharged. These results will be sent to your primary care provider and boiler coverer. Continue to utilize your acapella (green tube you blow through) until symptoms improve. Wear your BiPAP at night while you sleep or if you take a nap. Be sure it is hooked up to 5L of oxygen. Settings are 16/9. Wear 3.5L of oygen at all times and 4.5L with activity. We are recommending a pulmonary function test after your symptoms resolve. This can be scheduled with your primary care provider outpatient. Should symptoms return or worsen, contact your primary care provider or return to the [facility]. - Discharge Plan *PRESCRIPTION DRUG MONITORING PROGRAM REVIEWED*: No *COPY OF PRESCRIPTION DRUG MONITORING REPORT IN PATIENT LANI: No Prescriptions/Med Rec: Levalbuterol HCl [Xopenex] 1.25 mg NEB Q6HR #40 neb Acetylcysteine [Mucomyst 20%] 800 mg NEB BID #20 sdv Budesonide [Pulmicort] 0.5 mg NEB Q12H #20 neb guaiFENesin [Mucinex] 1,200 mg PO BID #40 tab.er methylPREDNISolone [Medrol] 4 mg PO ASDIRECTED #1 dospk Home Medications: Home Meds Furosemide [Lasix] 40 mg PO 06,12 04/18/14 [History] Montelukast [Singulair] 10 mg PO BEDTIME 04/18/14 [History] Potassium Chloride [K-Tab ER] 20 meq PO DAILY 04/18/14 [History] Roflumilast [Daliresp] 500 mcg PO DAILY 08/08/17 [History] Aclidinium Ada [Tudorza Pressair] 1 puff INH BID 07/14/19 [History] Acetylcysteine [Mucomyst 20%] 800 mg NEB BID #20 sdv 07/20/19 [Rx] Budesonide [Pulmicort] 0.5 mg NEB Q12H #20 neb 07/20/19 [Rx] Levalbuterol HCl [Xopenex] 1.25 mg NEB Q6HR #40 neb 07/20/19 [Rx] guaiFENesin [Mucinex] 1,200 mg PO BID #40 tab.er 07/20/19 [Rx] methylPREDNISolone [Medrol] 4 mg PO ASDIRECTED #1 dospk 07/20/19 [Rx] Oxygen Therapy Mode: Nasal Cannula Oxygen Flow Rate (L/min): 3.5 (3.5 at rest, 4.5 wit activity, 5L BiPAP bleed in) Maintain SpO2% greater than: 88 Patient Handouts: Chronic Obstructive Pulmonary Disease, Sepsis, Adult, Community-Acquired Pneumonia, Adult Referrals: Riccardo Kapadia NP [Ordering Only Provider] - 08/20/19 1:30 pm (This appt. is your pulmonogist, possible will need bronch scope. This appt. is in [facility] time.) Harvey Sainz MD [Primary Care Provider] - - Discharge Summary/Plan Comment DC Time >30 min.: Yes (45 min ) - General Info Date of Service: 07/20/19 Admission Dx/Problem (Free Text: Admission Diagnosis/Problem Admission Diagnosis/Problem COPD not affecting current episode of care Functional Status: Reports: Pain Controlled, Tolerating Diet, Ambulating, Urinating, Incentive Spirometry, Other (acapella ). Denies: New Symptoms - Review of Systems General: Reports: No Symptoms. Denies: Fever, Weakness, Fatigue, Malaise, Chills HEENT: Reports: No Symptoms. Denies: Headaches, Sore Throat Pulmonary: Reports: No Symptoms, Shortness of Breath, Cough, Other ("feels like something is stuck in my chest and won't come up"). Denies: Pleuritic Chest Pain, Sputum, Wheezing Cardiovascular: Reports: No Symptoms, Dyspnea on Exertion, Edema. Denies: Chest Pain, Palpitations Gastrointestinal: Reports: No Symptoms. Denies: Abdominal Pain, Constipation, Diarrhea, Nausea, Vomiting Genitourinary: Reports: No Symptoms. Denies: Pain Musculoskeletal: Reports: No Symptoms Skin: Reports: No Symptoms. Denies: Cyanosis Neurological: Reports: No Symptoms. Denies: Confusion Psychiatric: Reports: No Symptoms - Patient Data Vitals - Most Recent: Last Vital Signs Temp 98.1 F 07/20/19 08:09 Pulse 81 07/20/19 08:09 Resp 20 07/20/19 08:09 BP 137/72 07/20/19 08:09 Pulse Ox 91 L 07/20/19 12:17 Weight - Most Recent: 199 lb 12.8 oz I&O - Last 24 hours: Intake & Output 07/19/19 07/20/19 07/20/19 22:59 06:59 14:59 Intake Total 620 480 270 Output Total 1400 1250 Balance -780 -770 270 Med Orders - Current: Current Medications Acetaminophen (Tylenol) 650 mg PO Q4H PRN PRN Reason: Pain (Mild 1-3)/fever Last Admin: 07/19/19 12:34 Dose: 650 mg Acetylcysteine (Mucomyst 20%) 800 mg NEB Q4H [facility] Last Admin: 07/20/19 12:17 Dose: 800 mg Albuterol (Proventil Hfa) 0 gm INH Q4H PRN PRN Reason: Shortness of Breath Budesonide (Pulmicort) 0.5 mg NEB Q12H [facility] Last Admin: 07/20/19 12:17 Dose: 0.5 mg Enoxaparin Sodium (Lovenox) 40 mg SUBCUT DAILY [facility] Last Admin: 07/20/19 08:15 Dose: 40 mg Furosemide (Lasix) 40 mg PO BID@0600,1200 [facility] Last Admin: 07/20/19 12:56 Dose: 40 mg Guaifenesin (Mucinex) 1,200 mg PO BID [facility] Last Admin: 07/20/19 08:11 Dose: 1,200 mg Levalbuterol HCl (Xopenex) 1.25 mg NEB Q4HR [facility] Last Admin: 07/20/19 12:17 Dose: 1.25 mg Lorazepam (Ativan) 0.5 mg IVPUSH Q2H PRN PRN Reason: Anxiety Last Admin: 07/20/19 01:08 Dose: 0.5 mg Methylprednisolone Sodium Succinate (Solu-Medrol) 125 mg IVPUSH DAILY [facility] Last Admin: 07/20/19 08:15 Dose: 125 mg Montelukast Sodium (Singulair) 10 mg PO BEDTIME [facility] Last Admin: 07/19/19 20:46 Dose: 10 mg Ondansetron HCl (Zofran) 4 mg IV Q4H PRN PRN Reason: Nausea/Vomiting Potassium Chloride (Klor-Con M20) 20 meq PO DAILY [facility] Last Admin: 07/20/19 08:12 Dose: 20 meq Sodium Chloride (Saline Flush) 10 ml FLUSH ASDIRECTED PRN PRN Reason: Keep Vein Open Last Admin: 07/15/19 02:03 Dose: 10 ml Sodium Chloride ([place] Nasal [place]) 1 ml JOCELYN Q2H PRN PRN Reason: Nasal Dryness Last Admin: 07/15/19 22:28 Dose: 1 spray Discontinued Medications Acetylcysteine (Mucomyst 20%) 800 mg NEB Q12H [facility] Last Admin: 07/19/19 05:29 Dose: 800 mg Acetylcysteine (Mucomyst 20%) 800 mg NEB Q12H [facility] Last Admin: 07/19/19 08:25 Dose: 800 mg Albuterol/Ipratropium (Duoneb 3.0-0.5 Mg/3 Ml) 3 ml NEB ONETIME ONE Stop: 07/14/19 13:07 Last Admin: 07/14/19 13:21 Dose: 3 ml Albuterol/Ipratropium (Duoneb 3.0-0.5 Mg/3 Ml) 3 ml NEB Q4HR [facility] Last Admin: 07/18/19 20:30 Dose: 3 ml Azithromycin (Zithromax) 250 mg PO Q24H [facility] Last Admin: 07/18/19 16:52 Dose: 250 mg Budesonide (Pulmicort) 0.5 mg NEB BIDRT [facility] Cefdinir (Omnicef) 300 mg PO Q12H [facility] Last Admin: 07/18/19 06:21 Dose: 300 mg Furosemide (Lasix) 40 mg PO BID [facility] Last Admin: 07/15/19 20:38 Dose: Not Given Guaifenesin (Mucinex) 1,200 mg PO BID [facility] Last Admin: 07/18/19 08:16 Dose: 1,200 mg Guaifenesin/Codeine Phosphate (Robitussin Ac) 10 ml PO Q4H [facility] Last Admin: 07/19/19 15:49 Dose: Not Given Guaifenesin/Phenylephrine HCl (Robitussin Dm) 10 ml PO TID@0700,1400,2100 PRN PRN Reason: Cough Azithromycin 500 mg/ Sodium (Chloride) 250 mls @ 250 mls/hr IV ONETIME ONE Stop: 07/14/19 16:13 Last Admin: 07/14/19 17:41 Dose: 250 mls/hr Ceftriaxone Sodium 1 gm/ (Sodium Chloride) 100 mls @ 200 mls/hr IV ONETIME ONE Stop: 07/14/19 15:42 Last Admin: 07/14/19 16:02 Dose: 200 mls/hr Ceftriaxone Sodium 1 gm/ (Sodium Chloride) 100 mls @ 200 mls/hr IV Q24H [facility] Last Admin: 07/16/19 16:05 Dose: 200 mls/hr Ipratropium Ada (Atrovent) 0.5 mg NEB Q8HRRT [facility] Last Admin: 07/19/19 05:29 Dose: 0.5 mg Levalbuterol HCl (Xopenex) 1.25 mg NEB Q4HRRT [facility] Last Admin: 07/19/19 14:20 Dose: Not Given Lorazepam (Ativan) 0.5 mg IVPUSH ONETIME ONE Stop: 07/14/19 18:49 Last Admin: 07/14/19 19:08 Dose: 0.5 mg Methylprednisolone Sodium Succinate (Solu-Medrol) 125 mg IVPUSH ONETIME ONE Stop: 07/14/19 13:14 Last Admin: 07/14/19 14:30 Dose: 125 mg Methylprednisolone Sodium Succinate (Solu-Medrol) 40 mg IVPUSH Q6H [facility] Last Admin: 07/16/19 09:17 Dose: 40 mg Methylprednisolone Sodium Succinate (Solu-Medrol) 40 mg IVPUSH Q8H [facility] Last Admin: 07/17/19 01:00 Dose: 40 mg Metoprolol Tartrate (Lopressor) Confirm Administered Dose 5 mg .ROUTE .STK-MED ONE Stop: 07/18/19 21:20 Last Admin: 07/18/19 21:36 Dose: Not Given Metoprolol Tartrate (Lopressor) 5 mg IVPUSH ONETIME ONE Stop: 07/18/19 21:23 Last Admin: 07/18/19 21:24 Dose: 5 mg Prednisone (Prednisone) 40 mg PO WITHBREAKFAST [facility] Last Admin: 07/18/19 06:21 Dose: 40 mg Sodium Chloride (Sodium Chloride 3%) 3 ml NEB Q4HRRT [facility] Last Admin: 07/15/19 18:18 Dose: Not Given Sodium Chloride (Sodium Chloride 3%) 3 ml NEB 0600,1800 [facility] Last Admin: 07/16/19 02:14 Dose: Not Given Sodium Chloride (Sodium Chloride 3%) 3 ml NEB Q12H [facility] Last Admin: 07/15/19 23:32 Dose: 3 ml Sodium Chloride (Sodium Chloride 3%) 3 ml NEB Q12H [facility] Last Admin: 07/17/19 21:26 Dose: 3 ml - Exam Quality Assessment: Reports: Supplemental Oxygen (3.5L), DVT Prophylaxis General: Reports: Alert, Oriented, Cooperative, No Acute Distress HEENT: Reports: Pupils Equal, Pupils Reactive, EOMI, Mucous Membr. Moist/[place] Neck: Reports: Supple, Trachea Midline Lungs: Reports: Decreased Breath Sounds, Rhonchi (minimal ). Denies: Crackles, Rales, Wheezing Cardiovascular: Reports: Regular Rate, Regular Rhythm GI/Abdominal Exam: Normal Bowel Sounds, Soft, Non-Tender, No Distention, No Abnormal Bruit (Female) Exam: Deferred Rectal (Female) Exam: Deferred Back Exam: Reports: Normal Inspection, Full Range of Motion Extremities: Normal Inspection, Normal Range of Motion, Non-Tender, Normal Capillary Refill, Pedal Edema Skin: Reports: Warm, Dry, Intact Neurological: Reports: No New Focal Deficit Psy/Mental Status: Reports: Alert, Normal Affect, Normal Mood
[2019-07-20 15:26] VITALS: BP 141/67; PULSE 94
== END 2019-07-20 16:54 | disposition home or self-care (01) | DRG 193 ==
LOC: SUPCPDRO 12:26 → JD.ED 12:26 → JD.MS 16:01 → JD.ICU 22:06 → JD.MS 07-16 13:38
PROVIDERS: ADMIT Family Medicine; ATTEND Family Medicine
PROC: 5A09457 Assistance with Respiratory Ventilation, 24-96 Consecutive Hours, Continuous Positive Airway Pressure (ICD-10-PCS; principal; 2019-07-14)
DX: J15.7 Pneumonia due to Mycoplasma pneumoniae (principal); J18.9 Pneumonia, unspecified organism; J96.21 Acute and chronic respiratory failure with hypoxia; J44.1 Chronic obstructive pulmonary disease with (acute) exacerbation; J44.0 Chronic obstructive pulmonary disease with (acute) lower respiratory infection; Z87.01 Personal history of pneumonia (recurrent); E87.3 Alkalosis; I50.32 Chronic diastolic (congestive) heart failure; J40 Bronchitis, not specified as acute or chronic; E88.01 Alpha-1-antitrypsin deficiency; I11.0 Hypertensive heart disease with heart failure; H54.7 Unspecified visual loss; E66.9 Obesity, unspecified; T38.0X5A Adverse effect of glucocorticoids and synthetic analogues, initial encounter; D72.829 Elevated white blood cell count, unspecified; Z79.899 Other long term (current) drug therapy; Z88.1 Allergy status to other antibiotic agents; Z85.41 Personal history of malignant neoplasm of cervix uteri; Z90.89 Acquired absence of other organs; Z90.49 Acquired absence of other specified parts of digestive tract; Z87.891 Personal history of nicotine dependence
CPT/HCPCS: 36415; 36600; 71046; 80053; 82803; 83880; 84484; 85007; 85027; 85610; 85730; 86738; 93005; 94640; 96374; 99285; J2930; 71045; 71045-26; 83605; 83735; 85025; 86140; 93010; 93306; 94660; 94667; 94668; 94761; 94762; 96375; 99222; 99231; 99232; 99233; 99239; A9270-GY; J0456; J0696; J1650; J2060; J2920; J3490; J7030; J7050; J7620-GY

== ENCOUNTER 2021-02-11 10:01 | Emergency (ER) | payer MEDICARE, MEDICAID ==
[2021-02-11 10:29] VITALS: BP 146/70; PULSE 60
[2021-02-11] MEDS ORDERED: HYDROmorphone 0.5 MG/0.5 ML Syringe IM ONE (11:19)
[2021-02-11] MEDS ORDERED: Orphenadrine 100 MG Tab.ER PO ONE (11:19)
--- NOTE | 2021-02-11 11:25 | EDM.PDOC ---
ED HPI GENERAL MEDICAL PROBLEM - General Chief Complaint: Back Pain or Injury Stated Complaint: L LOWER BACK PAIN Time Seen by Provider: 02/11/21 11:18 Source of Information: Reports: Patient, RN Notes Reviewed History Limitations: Reports: No Limitations - History of Present Illness INITIAL COMMENTS - FREE TEXT/NARRATIVE: Patient is a 65-year-old female who presents to the ER for the evaluation of her lower back pain. Patient does have a history of COPD, and took her nebulizer today, and her heart rate increased, so she became concerned about that but she also states that she was having left lower back pain for some time. States that she can hardly stand up that it so bad. She has been taking Tylenol at home, with little relief. She denies any trauma to the area. Patient denies any radiation down the left leg. Patient denies any dysuria, frequency or urgency, along with any fevers or chills, cough, worsening shortness of breath, or any sort of nausea/vomiting/diarrhea. Primary care provider is Dr. Harvey Suarez. States that she was recently started on metoprolol, Cardizem, and Eliquis. Other than that, she has had no change in her medical history. Patient is also oxygen dependent, and has not been having any increased needs and oxygen therapy. Lower Back Pain Score (Numeric/FACES): 8 - Related Data Allergies Allergy/AdvReac Type Severity Reaction Status Date / Time levofloxacin [From Levaquin] Allergy Rash Verified 02/11/21 10:22 Home Meds: Home Meds Furosemide [Lasix] 40 mg PO 06,12 04/18/14 [History] Montelukast [Singulair] 10 mg PO BEDTIME 04/18/14 [History] Potassium Chloride [K-Tab ER] 20 meq PO DAILY 04/18/14 [History] Roflumilast [Daliresp] 500 mcg PO DAILY 08/08/17 [History] Aclidinium [place] [Tudorza Pressair] 1 puff INH BID 07/14/19 [History] levalbuterol HCL [Xopenex] 1.25 mg NEB Q6HR #40 neb 07/20/19 [Rx] Acetaminophen/oxyCODONE [Percocet 325-5 MG] 1 each PO Q6H PRN #20 tab 02/11/21 [Rx] Albuterol [Ventolin HFA] 02/11/21 [History] Fluticasone/Vilanterol [Breo Ellipta 100-25 MCG Inhalation Kit] 02/11/21 [History] Orphenadrine [Norflex] 100 mg PO BID PRN #20 tab 02/11/21 [Rx] predniSONE [Prednisone] 10 mg PO DAILY 02/11/21 [History] Past Medical History HEENT History: Reports: Impaired Vision Other HEENT History: reading eyeglasses. Cardiovascular History: Reports: Hypertension Respiratory History: Reports: Asthma, COPD, Pneumonia, Recurrent, Other (See Below) Other Respiratory History: alpha one anti-trypsin deficiency HOSPITAL PHARMACIST History: Reports: Other HOSPITAL PHARMACIST History: Endocrine/Metabolic History: Reports: Obesity/BMI 30+ Oncologic (Cancer) History: Reports: Cervix, Other (See Below) Other Oncologic History: had spot removed from cervix. Dermatologic History: Reports: Other (See Below) Other Dermatologic History: DRY SKIN - Infectious Disease History Infectious Disease History: Reports: Chicken Pox - Past Surgical History HEENT Surgical History: Reports: Oral Surgery, Tonsillectomy Other HEENT Surgeries/Procedures: teeth taken out. GI Surgical History: Reports: Cholecystectomy Female Surgical History: Reports: Section Social & Family History - Family History Family Medical History: No Pertinent Family History - Tobacco Use Tobacco Use Status *Q: Former Tobacco User Used Tobacco, but Quit: Yes Month/Year Tobacco Last Used: 08/2012 - Caffeine Use Caffeine Use: Reports: None - Recreational Drug Use Recreational Drug Use: No - Living Situation & Occupation Living situation: Reports: , with Family (Daughter, son-in-law, 2 grandchildren) Occupation: Disabled ED ROS GENERAL - Review of Systems Review Of Systems: Comprehensive ROS is negative, except as noted in HPI. ED EXAM,LOWER BACK PAIN/INJURY - Physical Exam Exam: See Below Exam Limited By: No Limitations General Appearance: Alert, WD/WN, No Apparent Distress Respiratory/Chest: No Respiratory Distress, Lungs Clear, Normal Breath Sounds, No Accessory Muscle Use, Chest Non-Tender Cardiovascular: Normal Peripheral Pulses, Regular Rate, Rhythm, No Edema GI/Abdominal: Normal Bowel Sounds, Soft, Non-Tender, No Distention, No Mass Extremities: Normal Inspection, Normal Capillary Refill Neurological: Alert, Normal Mood/Affect, Normal Dorsiflexion, Normal Plantar Flexion, No Motor/Sensory Deficits, Oriented x 3 Psychiatric: Normal Affect, Normal Mood Skin Exam: Warm, Dry, Intact, Normal Color, No Rash Course - Vital Signs Last Recorded V/S: Last Vital Signs Temp 97.4 F 02/11/21 10:28 Pulse 60 02/11/21 10:28 Resp 16 02/11/21 10:28 BP 146/70 H 02/11/21 10:28 Pulse Ox 965 H 02/11/21 10:28 - Orders/Labs/Meds Meds: Medications Discontinued Medications Generic Name Dose Route Start Last Admin Trade Name Freq PRN Reason Stop Dose Admin Hydromorphone HCl 0.5 mg 02/11/21 11:19 02/11/21 11:43 Hydromorphone 0.5 Mg/0.5 Ml Syringe IM 02/11/21 11:20 0.5 mg ONETIME ONE Administration Orphenadrine Citrate 100 mg 02/11/21 11:19 02/11/21 11:45 Orphenadrine 100 Mg Tab.Er PO 02/11/21 11:20 100 mg ONETIME ONE Administration - Re-Assessments/Exams Free Text/Narrative Re-Assessment/Exam: 02/11/21 11:24 Patient presents to the ED for the evaluation of her back pain. We will give her 0.5 mg IM Dilaudid for pain management, 100 mg p.o. Norflex, and take lumbar films for evaluation. 02/11/21 12:01 Lumbar x-rays have been taken, there is some concern with L3. Patient's bones do look somewhat thin as well however official radiology read is still pending at this time. 02/11/21 12:20 X-rays have been read, there is a moderate to severe compression deformity seen with L3, this is occurred from a prior study which was compared from a CT exam in 08/22/2017. There is a slight compression deformity noted within T10-T12, which are age-indeterminate. Mild spondylolisthesis noted at L4-L5, disc base narrowing at L5-S1 with vacuum disc phenomenon. Impression was compression deformities as noted above, diffuse osteopenia. Mild degenerative changes noted above, otherwise no acute findings. I do believe that the compression fracture is likely the cause of the patient's pain however I am not exactly sure when it would have happened but this does seem to be the level of her pain. Departure - Departure Time of Disposition: 12:25 Disposition: Home, Self-Care 01 Condition: Good Clinical Impression: Osteopenia determined by x-ray Nontraumatic compression fracture of L3 vertebra Qualifiers: Encounter type: initial encounter Qualified Code(s): M48.56XA - Collapsed vertebra, not elsewhere classified, lumbar region, initial encounter for fracture Compression fx, thoracic spine Qualifiers: Encounter type: initial encounter Thoracic vertebra fracture level: unspecified thoracic vertebra Qualified Code(s): S22.000A - Wedge compression fracture of unspecified thoracic vertebra, initial encounter for closed fracture - Discharge Information *PRESCRIPTION DRUG MONITORING PROGRAM REVIEWED*: Yes *COPY OF PRESCRIPTION DRUG MONITORING REPORT IN PATIENT LANI: No Prescriptions: Orphenadrine [Norflex] 100 mg PO BID PRN #20 tab PRN Reason: Spasms Acetaminophen/oxyCODONE [Percocet 325-5 MG] 1 each PO Q6H PRN #20 tab PRN Reason: Pain Instructions: Osteopenia, Spinal Compression Fracture Referrals: Harvey Sainz MD [Primary Care Provider] - 1 Week (for neurosurgical referral vs pain management for new compresson fractures of L3, and seemingly older compression fractures T10-T12) Forms: ED Department Discharge Additional Instructions: You were evaluated in the ER today for your back pain. Lumbar x-rays do demonstrate a new compression fracture within your L3 vertebrae, this is essentially the bone collapsing on itself. This can happen due to aging bones, and thinning bones, and you were also noted to have thinning bones on your x-ray as well. Again thinning bones is common as we age, but the process was likely hastened in your situation due to your chronic steroid use. Highly and strongly recommend that you take some calcium and vitamin D supplements [id number], to help strengthen your bone density. You should take at least 400mg calcium carbonate or calcium citrate TID with food, and at least 800 units of vitamin D daily. There were also slight compression deformities within your T10-T12 vertebrae, which seem to be age indeterminate. But these are not as bad as the compression deformity seen in L3. This is likely the source of your pain. You may also obtain a lower back brace from [facility] or any pharmacy to provide extra support while you are feeling at your worst. You were given a prescription for a strong pain medication, oxycodone/acetaminophen 5/325 mg, please take 1 tab every 6 hours as needed for pain not relieved by Tylenol or ibuprofen alone. Please note this medication does contain Tylenol in it, so do not take more than 4000 mg in a 24-hour time span. These medications can be addictive, so please take as few as possible to achieve adequate pain control. These meds can also be quite constipating, recommend that you increase your oral fluid intake and take a stool softener like MiraLAX while taking these medications. Do not drive while taking this medication. You have also been given a prescription for Norflex, muscle relaxer, you may take 1 tablet 2 times a day as needed for further muscle spasms. These medications were electronically sent to [facility]. You will need to follow-up with your regular care provider, Dr. Harvey Suarez, for ongoing management as he will need to place a neurosurgical referral versus pain management referral for your compression fracture. If you should develop any leg numbness, leg weakness, loss of control of your bowel or bladder function, these symptoms would mean you need more urgent care, and you should return immediately to the ER for evaluation. Sepsis Event Note (ED) - Evaluation Sepsis Screening Result: No Definite Risk - Focused Exam Vital Signs: Vital Signs Temp Pulse Resp BP Pulse Ox 02/11/21 10:28 97.4 F 60 16 146/70 H 965 H
--- NOTE | 2021-02-11 12:15 | CR ---
Lumbar spine: AP, lateral and coned-down lateral views centered to the lumbosacral junction were obtained. Comparison: Prior lateral study obtained during abdominal CT exam of 08/22/17. Moderate to severe compression deformity is seen within L3. This has occurred from prior study. Slight compression deformities are also noted within T10 through T12 which are age indeterminate. Minimal spondylolisthesis is noted at L4-5. Disc space narrowing is seen at L5-S1 with vacuum disc phenomena. Bony structures are somewhat osteopenic. Pedicles are intact. Transverse processes are not well seen. Spinous processes are also not well seen. Atherosclerotic calcification and tortuosity of the lumbar aorta is noted. Surgical clips are noted from prior cholecystectomy. Impression: 1. Compression deformities as noted above. 2. Diffuse osteopenia. 3. Mild degenerative change as noted above. 4. Other findings which are nonacute as described above. Diagnostic code #3
== END 2021-02-11 13:00 | disposition home or self-care (01) ==
LOC: JD.ED 10:01
DX: M48.54XA Collapsed vertebra, not elsewhere classified, thoracic region, initial encounter for fracture (principal); M48.56XA Collapsed vertebra, not elsewhere classified, lumbar region, initial encounter for fracture; R91.8 Other nonspecific abnormal finding of lung field; I10 Essential (primary) hypertension; J44.9 Chronic obstructive pulmonary disease, unspecified; E66.9 Obesity, unspecified; Z87.891 Personal history of nicotine dependence; Z88.1 Allergy status to other antibiotic agents; Z68.30 Body mass index [BMI] 30.0-30.9, adult
CPT/HCPCS: 72100; 96372; 99283; A9270; J1170; 99284

== ENCOUNTER 2021-06-04 13:25 | Emergency (ER) | payer MEDICARE, MEDICAID ==
[2021-06-04] MEDS ORDERED: Albuterol/Ipratropium 3.0-0.5 MG/3 ML Neb Soln NEB ONE (13:39)
[2021-06-04] MEDS ORDERED: methylPREDNISolone Sodium Succinate 125 MG/2 ML SDV IVPUSH ONE (13:39)
[2021-06-04] MEDS ORDERED: Lactated Ringers 500 ML IV ONE (13:48)
[2021-06-04] MEDS ORDERED: Norepinephrine 4 MG in Dextrose 5% in Water 246 ML IV SCH ×2 (14:00)
--- NOTE | 2021-06-04 14:27 | EDM.PDOC ---
ED HPI GENERAL MEDICAL PROBLEM - General Chief Complaint: Respiratory Problem Stated Complaint: [facility] Time Seen by Provider: 06/04/21 13:25 - History of Present Illness INITIAL COMMENTS - FREE TEXT/NARRATIVE: 66-year-old female brought in by EMS unresponsive and quite hypoxic. According to EMS patient was picked up in a house where her daughter and son-in-law live both which have active Covid infection is going on. Patient has longstanding lung disease resulting from smoking alpha-1 antitrypsin deficiency. At one point patient was actually on a lung transplant list. According to EMS family instructed them to inform us that we have to do everything we can. I did discuss situation with the patient's daughter initially stated the patient has not been doing well for the last several days and she has been much slower to respond during the course of activities today she has been weak and tired and just generally not being herself slow to answer questions. At some point around the day the patient became unresponsive the exact timing is unknown when the family identified this EMS was activated. EMS found the patient quite hypoxic hypotensive and tachycardic absolutely unresponsive. - Related Data Allergies Allergy/AdvReac Type Severity Reaction Status Date / Time levofloxacin [From Levaquin] Allergy Rash Verified 02/11/21 10:22 Home Meds: Home Meds Furosemide [Lasix] 40 mg PO ,12 04/18/14 [History] Montelukast [Singulair] 10 mg PO BEDTIME 04/18/14 [History] Potassium Chloride [K-Tab ER] 20 meq PO DAILY 04/18/14 [History] Roflumilast [Daliresp] 500 mcg PO DAILY 08/08/17 [History] Aclidinium [place] [Tudorza Pressair] 1 puff INH BID 07/14/19 [History] levalbuterol HCL [Xopenex] 1.25 mg NEB Q6HR #40 neb 07/20/19 [Rx] Acetaminophen/oxyCODONE [Percocet 325-5 MG] 1 each PO Q6H PRN #20 tab 02/11/21 [Rx] Albuterol [Ventolin HFA] 02/11/21 [History] Fluticasone/Vilanterol [Breo Ellipta 100-25 MCG Inhalation Kit] 02/11/21 [History] Orphenadrine [Norflex] 100 mg PO BID PRN #20 tab 02/11/21 [Rx] predniSONE [Prednisone] 10 mg PO DAILY 02/11/21 [History] Past Medical History HEENT History: Reports: Impaired Vision Other HEENT History: reading eyeglasses. Cardiovascular History: Reports: Hypertension Respiratory History: Reports: Asthma, COPD, Pneumonia, Recurrent, Other (See Below) Other Respiratory History: alpha one anti-trypsin deficiency Genitourinary History: Reports: None CLINICAL NURSE REVIEWER History: Reports: Other CLINICAL NURSE REVIEWER History: Musculoskeletal History: Reports: None Neurological History: Reports: None Psychiatric History: Reports: None Endocrine/Metabolic History: Reports: Obesity/BMI 30+ Hematologic History: Reports: Other (See Below) Other Hematologic History: Alpha-1 Deficiency Immunologic History: Reports: None Oncologic (Cancer) History: Reports: Cervix, Other (See Below) Other Oncologic History: had spot removed from cervix. Dermatologic History: Reports: Other (See Below) Other Dermatologic History: DRY SKIN - Infectious Disease History Infectious Disease History: Reports: Chicken Pox, Novel Coronavirus - Past Surgical History Head Surgeries/Procedures: Reports: None HEENT Surgical History: Reports: Oral Surgery, Tonsillectomy Other HEENT Surgeries/Procedures: teeth taken out. GI Surgical History: Reports: Cholecystectomy Female Surgical History: Reports: Section Musculoskeletal Surgical History: Reports: None Social & Family History - Family History Family Medical History: No Pertinent Family History - Tobacco Use Tobacco Use Status *Q: Current Status Unknown - Caffeine Use Caffeine Use: Reports: None - Living Situation & Occupation Living situation: Reports: , with Family (Daughter, son-in-law, 2 grandchildren) Occupation: Disabled ED ROS GENERAL - Review of Systems Review Of Systems: See Below Reason Not Obtained: Unable to obtain because of her unresponsiveness ED EXAM, GENERAL - Physical Exam Exam: See Below Exam Limited By: Other (Patient is unresponsive and is not able to cooperate and give any history or participate in the exam) General Appearance: Other (She is completely unresponsive upon arrival pupils noted to be fixed and dilated) Eye Exam: Bilateral Eye: Normal Inspection (Normal inspection other than her dilated fixed pupils), Other (Pupils fixed and dilated) Ears: Normal External Exam, Normal Canal, Hearing Grossly Normal, Normal TMs Nose: Normal Inspection Throat/Mouth: Normal Oropharynx, Other (Semidry mucosa). No: Normal Teeth Head: Atraumatic, Normocephalic Neck: Normal Inspection, Supple, Non-Tender, Full Range of Motion. No: Lymphadenopathy (L), Lymphadenopathy (R) Respiratory/Chest: Decreased Breath Sounds. No: Crackles, Rales, Rhonchi, Wheezing Cardiovascular: Tachycardia, Irregularly Irregular GI/Abdominal: Normal Bowel Sounds, Soft Extremities: Pedal Edema, Other (2+ pitting edema) Neurological: Other (Unresponsive) #1 Interpretation EKG Date: 06/04/21 Rhythm: A-Fib Rate (Beats/Min): 162 [place]: Normal P-Wave: Absent QRS: Other (Prominent QRS in the limb leads) ST-T: Other (Variable nonspecific nondiagnostic changes could be artifact related to tachycardia) QT: Normal Comparison: Change From Previous EKG (Patient has significant changes from EKG on 07/14/2019 where she was in sinus tachycardia with unifocal PVCs) EKG Interpretation Comments: Abnormal Course - Vital Signs Last Recorded V/S: Last Vital Signs Temp 35.1 C L 06/04/21 13:55 Pulse 180 H 06/04/21 17:09 Resp 40 H 06/04/21 17:09 BP 80/50 L 06/04/21 17:09 Pulse Ox 73 L 06/04/21 17:09 - Orders/Labs/Meds Orders: Active Orders 24 hr Category Date Time Status BIPAP [RT BiPAP/CPAP] [RC] ASDIRECTED Care 06/04/21 13:40 Active RT Aerosol Therapy [RC] ASDIRECTED Care 06/04/21 13:39 Active BLOOD CULTURE [MREF] Stat Lab 06/04/21 14:10 Received BLOOD CULTURE [MREF] Stat Lab 06/04/21 14:10 Received Morphine Med 06/04/21 20:57 Active 1 - 2 mg IVPUSH Q1H PRN Norepinephrine [Levophed] 4 mg Med 06/04/21 14:00 Active Dextrose 5% in Water 246 ml IV TITRATE Blood Culture x2 Reflex Set [OM.PC] Stat Oth 06/04/21 13:43 Ordered Medication Orders Norepinephrine Bitartrate 4 mg (/ Dextrose/Water) 250 mls @ 7.5 mls/hr IV TITRATE ROD; Protocol Last Titration: 06/04/21 20:00 Dose: 1.5 mcg/min, 5.625 mls/hr Documented by: Titration: 06/04/21 14:30 Dose: 12 mcg/min, 45 mls/hr Documented by: Titration: 06/04/21 14:25 Dose: 10 mcg/min, 37.5 mls/hr Documented by: Titration: 06/04/21 14:20 Dose: 7 mcg/min, 26.25 mls/hr Documented by: Titration: 06/04/21 14:15 Dose: 5 mcg/min, 18.75 mls/hr Documented by: Admin: 06/04/21 14:01 Dose: 2 mcg/min, 7.5 mls/hr Documented by: SLIM Morphine Sulfate (Morphine 2 Mg/Ml Syringe) 1 - 2 mg IVPUSH Q1H PRN PRN Reason: Pain Last Admin: 06/05/21 07:33 Dose: 2 mg Documented by: Admin: 06/05/21 06:25 Dose: 2 mg Documented by: Admin: 06/05/21 02:30 Dose: 2 mg Documented by: Admin: 06/05/21 01:32 Dose: 1 mg Documented by: Admin: 06/04/21 22:54 Dose: 1 mg Documented by: MINO Labs: Laboratory Tests 06/04/21 06/04/21 06/04/21 Range/Units 13:40 13:45 13:45 WBC (3.98-10.04) K/mm3 RBC (3.98-5.22) M/mm3 Hgb (11.2-15.7) gm/dl Hct (34.1-44.9) % MCV (79.4-94.8) fl MCH (25.6-32.2) pg MCHC (32.2-35.5) g/dl RDW Std Deviation (36.4-46.3) fL Plt Count (182-369) K/mm3 MPV (9.4-12.3) fl Neut % (Auto) (34.0-71.1) % Lymph % (Auto) (19.3-51.7) % [place] % (Auto) (4.7-12.5) % Eos % (Auto) (0.7-5.8) Baso % (Auto) (0.1-1.2) % Neut # (Auto) (1.56-6.13) K/mm3 Lymph # (Auto) (1.18-3.74) K/mm3 [place] # (Auto) (0.24-0.36) K/mm3 Eos # (Auto) (0.04-0.36) K/mm3 Baso # (Auto) (0.01-0.08) K/mm3 Manual Slide Review PT 10.0 (9.7-12.0) SECONDS INR < 0.93 APTT 25.3 (21.7-31.4) SECONDS D-Dimer, Quantitative 1.97 H (0.19-0.50) mg/L Puncture Site Lt radial ABG pH 7.17 L* (7.35-7.45) ABG pCO2 139.5 H* (35.0-45.0) mmHg ABG pO2 53.0 L (80.0-100.0) mmHg ABG HCO3 49.3 H (22.0-26.0) meq/L ABG O2 Saturation 80.6 L (96.0-97.0) % ABG Base Excess 14.9 H (-2-2.0) Perez Test Positive O2 Delivery Device Oxygen Flow Rate PEEP 12.0 cmH20 Pressure Support 5.0 cmH2O Sodium 144 (136-145) mEq/L Potassium 5.7 H (3.5-5.1) mEq/L Chloride 94 L (98-107) mEq/L Carbon Dioxide 48 H* D (21-32) mEq/L Anion Gap 7.7 (5-15) BUN 67 H D (7-18) mg/dL Creatinine 2.1 H D (0.55-1.02) mg/dL Est Cr Clr Drug Dosing TNP Estimated GFR (MDRD) 24 (>60) mL/min BUN/Creatinine Ratio 31.9 H (14-18) Glucose 115 H (70-99) mg/dL Lactic Acid (0.4-2.0) mmol/L Calcium 9.5 (8.5-10.1) mg/dL Total Bilirubin 0.9 (0.2-1.0) mg/dL AST 42 H (15-37) U/L ALT 41 (14-59) U/L Alkaline Phosphatase 122 H (46-116) U/L Lactate Dehydrogenase 304 H (81-234) U/L Troponin I < 0.017 (0.00-0.056) ng/mL C-Reactive Protein 13.5 H* (<1.0) mg/dL NT-Pro-B Natriuret Pep (0-125) pg/mL Total Protein 6.5 (6.4-8.2) g/dl Albumin 3.2 L (3.4-5.0) g/dl Globulin 3.3 gm/dL Albumin/Globulin Ratio 1.0 (1-2) SARS-CoV-2 RNA (JEM) (NEGATIVE) 06/04/21 06/04/21 06/04/21 Range/Units 13:45 13:53 14:10 WBC (3.98-10.04) K/mm3 RBC (3.98-5.22) M/mm3 Hgb (11.2-15.7) gm/dl Hct (34.1-44.9) % MCV (79.4-94.8) fl MCH (25.6-32.2) pg MCHC (32.2-35.5) g/dl RDW Std Deviation (36.4-46.3) fL Plt Count (182-369) K/mm3 MPV (9.4-12.3) fl Neut % (Auto) (34.0-71.1) % Lymph % (Auto) (19.3-51.7) % [place] % (Auto) (4.7-12.5) % Eos % (Auto) (0.7-5.8) Baso % (Auto) (0.1-1.2) % Neut # (Auto) (1.56-6.13) K/mm3 Lymph # (Auto) (1.18-3.74) K/mm3 [place] # (Auto) (0.24-0.36) K/mm3 Eos # (Auto) (0.04-0.36) K/mm3 Baso # (Auto) (0.01-0.08) K/mm3 Manual Slide Review PT (9.7-12.0) SECONDS INR APTT (21.7-31.4) SECONDS D-Dimer, Quantitative (0.19-0.50) mg/L Puncture Site ABG pH (7.35-7.45) ABG pCO2 (35.0-45.0) mmHg ABG pO2 (80.0-100.0) mmHg ABG HCO3 (22.0-26.0) meq/L ABG O2 Saturation (96.0-97.0) % ABG Base Excess (-2-2.0) Perez Test O2 Delivery Device Oxygen Flow Rate PEEP cmH20 Pressure Support cmH2O Sodium (136-145) mEq/L Potassium (3.5-5.1) mEq/L Chloride (98-107) mEq/L Carbon Dioxide (21-32) mEq/L Anion Gap (5-15) BUN (7-18) mg/dL Creatinine (0.55-1.02) mg/dL Est Cr Clr Drug Dosing Estimated GFR (MDRD) (>60) mL/min BUN/Creatinine Ratio (14-18) Glucose (70-99) mg/dL Lactic Acid 1.8 (0.4-2.0) mmol/L Calcium (8.5-10.1) mg/dL Total Bilirubin (0.2-1.0) mg/dL AST (15-37) U/L ALT (14-59) U/L Alkaline Phosphatase (46-116) U/L Lactate Dehydrogenase (81-234) U/L Troponin I (0.00-0.056) ng/mL C-Reactive Protein (<1.0) mg/dL NT-Pro-B Natriuret Pep 8939 H (0-125) pg/mL Total Protein (6.4-8.2) g/dl Albumin (3.4-5.0) g/dl Globulin gm/dL Albumin/Globulin Ratio (1-2) SARS-CoV-2 RNA (JEM) Positive H (NEGATIVE) 06/04/21 06/04/21 Range/Units 14:10 16:03 WBC 20.75 H (3.98-10.04) K/mm3 RBC 4.65 (3.98-5.22) M/mm3 Hgb 13.6 (11.2-15.7) gm/dl Hct 47.6 H (34.1-44.9) % MCV 102.4 H (79.4-94.8) fl MCH 29.2 (25.6-32.2) pg MCHC 28.6 L (32.2-35.5) g/dl RDW Std Deviation 54.3 H (36.4-46.3) fL Plt Count 332 (182-369) K/mm3 MPV 10.6 (9.4-12.3) fl Neut % (Auto) 88.6 H (34.0-71.1) % Lymph % (Auto) 3.5 L (19.3-51.7) % [place] % (Auto) 6.9 (4.7-12.5) % Eos % (Auto) 0 L (0.7-5.8) Baso % (Auto) 0.1 (0.1-1.2) % Neut # (Auto) 18.38 H (1.56-6.13) K/mm3 Lymph # (Auto) 0.72 L (1.18-3.74) K/mm3 [place] # (Auto) 1.43 H (0.24-0.36) K/mm3 Eos # (Auto) 0.00 L (0.04-0.36) K/mm3 Baso # (Auto) 0.03 (0.01-0.08) K/mm3 Manual Slide Review Abnormal smear PT (9.7-12.0) SECONDS INR APTT (21.7-31.4) SECONDS D-Dimer, Quantitative (0.19-0.50) mg/L Puncture Site Lt radial ABG pH 7.12 L* (7.35-7.45) ABG pCO2 (35.0-45.0) mmHg ABG pO2 100.0 (80.0-100.0) mmHg ABG HCO3 (22.0-26.0) meq/L ABG O2 Saturation 96.3 (96.0-97.0) % ABG Base Excess (-2-2.0) Perez Test Positive O2 Delivery Device Bipap Oxygen Flow Rate 15.0 PEEP 5.0 cmH20 Pressure Support 12.0 cmH2O Sodium (136-145) mEq/L Potassium (3.5-5.1) mEq/L Chloride (98-107) mEq/L Carbon Dioxide (21-32) mEq/L Anion Gap (5-15) BUN (7-18) mg/dL Creatinine (0.55-1.02) mg/dL Est Cr Clr Drug Dosing Estimated GFR (MDRD) (>60) mL/min BUN/Creatinine Ratio (14-18) Glucose (70-99) mg/dL Lactic Acid (0.4-2.0) mmol/L Calcium (8.5-10.1) mg/dL Total Bilirubin (0.2-1.0) mg/dL AST (15-37) U/L ALT (14-59) U/L Alkaline Phosphatase (46-116) U/L Lactate Dehydrogenase (81-234) U/L Troponin I (0.00-0.056) ng/mL C-Reactive Protein (<1.0) mg/dL NT-Pro-B Natriuret Pep (0-125) pg/mL Total Protein (6.4-8.2) g/dl Albumin (3.4-5.0) g/dl Globulin gm/dL Albumin/Globulin Ratio (1-2) SARS-CoV-2 RNA (JEM) (NEGATIVE) Meds: Medications Generic Name Dose Route Start Last Admin Trade Name Freq PRN Reason Stop Dose Admin Norepinephrine Bitartrate 4 mg 250 mls @ 7.5 mls/hr 06/04/21 14:00 06/04/21 20:00 / Dextrose/Water IV Infused TITRATE ROD Titration Protocol 2 MCG/MIN Morphine Sulfate 1 - 2 mg 06/04/21 20:57 06/05/21 07:33 Morphine 2 Mg/Ml Syringe IVPUSH 2 mg Q1H PRN Administration Pain Discontinued Medications Generic Name Dose Route Start Last Admin Trade Name Freq PRN Reason Stop Dose Admin Albuterol/Ipratropium 3 ml 06/04/21 13:39 06/04/21 13:52 Albuterol/Ipratropium 3.0-0.5 Mg/3 Ml Neb Soln NEB 06/04/21 13:40 3 ml ONETIME ONE Administration Lactated Ringer's 500 mls @ 999 mls/hr 06/04/21 13:48 06/04/21 22:55 Ringers, Lactated IV 06/04/21 14:18 Not Given .BOLUS ONE Methylprednisolone Sodium Succinate 125 mg 06/04/21 13:39 06/04/21 13:51 Methylprednisolone Sodium Succinate 125 Mg/2 Ml Sdv IVPUSH 06/04/21 13:40 125 mg ONETIME ONE Administration Morphine Sulfate 1 mg 06/04/21 18:20 06/04/21 18:30 Morphine 2 Mg/Ml Syringe IVPUSH 06/04/21 18:21 1 mg ONETIME ONE Administration Morphine Sulfate Confirm 06/04/21 18:22 06/04/21 18:29 Morphine 2 Mg/Ml Syringe Administered 06/04/21 18:23 Not Given Dose 2 mg .ROUTE .STK-MED ONE - Re-Assessments/Exams Free Text/Narrative Re-Assessment/Exam: 06/04/21 17:06 Patient presents emergency room unresponsive hypoxic hypotensive and tachycardic. She is in obvious A. fib RVR. Patient has fixed and dilated pupils bilaterally. The discussion was made with her son and daughter as to what to do and they needed some time to discuss this. In the meantime we cannot find an accepting ICU in this state or any surrounding state. The family including the daughter Chanda who is Covid positive and the patient resides with. The patient's son Juan who has not been exposed to Covid and the patient's sister Kathy Crenshaw in [place]. Kathy is an RN who recommended comfort care with extended conversation with the son and the daughter they did agree to comfort care only at this time understanding that there is minimal chance of the patient ever getting off the ventilator and given the nature of the injury she is most likely already sustained has no meaningful life. While the family was disc ussing this I was able to discuss the situation with Dr. Suarez the patient's regular physician here in [facility] who states that the patient has been on the lung transplant list in the past and she has very much end-stage lung disease should the patient used to smoke she has alpha antitrypsin deficiency and end-stage COPD. Patient also is complicated by congestive heart failure. At this time the patient's kids do request that we pursue comfort care only and not intubate. Extensive conversation myself and Tucker from respiratory therapy with the patient's son and the daughter on speaker phone. 06/04/21 20:04 Case again reviewed with the son and daughter that live locally at this point we will decrease the Levophed and change her to high flow oxygen we will put an order in for as needed morphine 1 to 2 mg every hour as needed Departure - Departure Time of Disposition: 08:08 Disposition: 20 Clinical Impression: 2019 novel coronavirus-infected pneumonia (NCIP), COPD, Severe chronic obstructive pulmonary disease, Acute on chronic respiratory failure with hypoxe sebastian, [id number] deficiency - Discharge Information Referrals: Harvey Sainz MD [Primary Care Provider] - Forms: ED Department Discharge Sepsis Event Note (ED) - Evaluation Sepsis Screening Result: No Definite Risk - My Orders Last 24 Hours: My Active Orders 06/04/21 13:39 RT Aerosol Therapy [RC] ASDIRECTED 06/04/21 13:40 BIPAP [RT BiPAP/CPAP] [RC] ASDIRECTED 06/04/21 13:43 Blood Culture x2 Reflex Set [OM.PC] Stat 06/04/21 14:00 Norepinephrine [Levophed] 4 mg Dextrose 5% in Water 246 ml IV TITRATE 06/04/21 14:10 BLOOD CULTURE [MREF] Stat BLOOD CULTURE [MREF] Stat 06/04/21 20:57 Morphine 1 - 2 mg IVPUSH Q1H PRN - Assessment/Plan Last 24 Hours: My Active Orders 06/04/21 13:39 RT Aerosol Therapy [RC] ASDIRECTED 06/04/21 13:40 BIPAP [RT BiPAP/CPAP] [RC] ASDIRECTED 06/04/21 13:43 Blood Culture x2 Reflex Set [OM.PC] Stat 06/04/21 14:00 Norepinephrine [Levophed] 4 mg Dextrose 5% in Water 246 ml IV TITRATE 06/04/21 14:10 BLOOD CULTURE [MREF] Stat BLOOD CULTURE [MREF] Stat 06/04/21 20:57 Morphine 1 - 2 mg IVPUSH Q1H PRN
--- NOTE | 2021-06-04 15:07 | CT ---
Head CT Technique: Multiple axial sections through the brain were obtained. Study has motion artifact and was repeated with continued motion artifact. Findings: Ventricles along with basal cisterns and sulci over the convexity show no discrete abnormality. No evidence of intracranial hemorrhage is seen. No midline shift or mass-effect is seen. Bone window settings were reviewed and show no discrete calvarial abnormality. Visualized mastoid sinuses show mucosal thickening within the left side. No acute paranasal sinus findings are seen. Impression: 1. Severe motion artifact limiting details. No gross abnormality is appreciated intracranially. 2. Mild mucosal thickening is seen within the left mastoid sinus. Diagnostic code #3
--- NOTE | 2021-06-04 15:13 | CR ---
Chest: Frontal view of the chest was obtained. Comparison: Prior chest x-ray of 07/19/19. Heart size is normal. Tortuous thoracic aorta is seen. Lung markings are slightly increased and difficult to exclude mild pulmonary vascular congestion. Blunting of the right lateral costophrenic angle is seen which is possibly artifact but difficult to exclude small pleural effusion. Bony structures show nothing acute. Impression: 1. Slight increased lung markings. Difficult to exclude mild pulmonary vascular congestion if patient has correlating symptoms. 2. Questionable right-sided pleural effusion. 3. No other acute abnormality is appreciated. Diagnostic code #3
[2021-06-04 17:09] VITALS: BP 80/50; PULSE 180
[2021-06-04] MEDS ORDERED: Morphine 2 MG/ML SYRINGE IVPUSH ONE (18:20)
[2021-06-04] MEDS ORDERED: Morphine 2 MG/ML SYRINGE ONE (18:22)
[2021-06-04] MEDS: Morphine 2 MG/ML SYRINGE IVPUSH PRN (22:54)
[2021-06-05] MEDS: Morphine 2 MG/ML SYRINGE IVPUSH PRN ×4 (01:32→07:33)
== END 2021-06-05 10:10 | disposition expired ==
LOC: JD.ED 13:25
DX: U07.1 COVID-19 (principal); J12.82 Pneumonia due to coronavirus disease 2019; J44.9 Chronic obstructive pulmonary disease, unspecified; J96.21 Acute and chronic respiratory failure with hypoxia; E88.01 Alpha-1-antitrypsin deficiency; I10 Essential (primary) hypertension; E66.9 Obesity, unspecified; Z68.30 Body mass index [BMI] 30.0-30.9, adult; Z88.1 Allergy status to other antibiotic agents
CPT/HCPCS: 36415; 36600; 70450; 71045; 80053; 82803; 83605; 83615; 83880; 84484; 85025; 85379; 85610; 85730; 86140; 87040; 93005; 94640; 96365; 96366; 96375; 96376; 99285; J2270; J2930; J7060; U0002; J7620-GY